=== PATIENT | male | born 1950 | race Caucasian/White ===

== ENCOUNTER → 2018-04-17 09:54 | Outpatient (CLI) | payer OTHER, SELFPAY ==
[2018-04-17 10:39] LABS: Add Manual Diff / Slide Review NO; Basophils Percent Auto 1.8 % (0-2); Eosinophils Percent Auto 4.9 % (2-4); Hematocrit 40.8 % (41-53); Hemoglobin 14.2 g/dL (13.5-17.5); Lymphocytes Percent Auto 19.4 % (25-40); Mean Corpuscular HGB Conc 34.7 % (30-36); Mean Corpuscular Hemoglobin 40.8 PG (26-34); Mean Corpuscular Volume 117.7 fL (80-100); Monocytes Percent Auto 15.1 % (3-14); Neutrophils Absolute Auto 2300 /uL (3000-5900); Neutrophils Percent Auto 58.8 % (50-75); Platelet Count 415 X10^3/uL (150-400); Red Blood Cell Count 3.47 X10^6/uL (4.5-5.9); Red Cell Distribution Width 13.2 % (11.6-14.8); White Blood Cell Count 3.9 X10^3/uL (4.5-11.0)
[2018-04-17 10:48] LABS: Alanine Aminotransferase 37 IU/L (21-72); Albumin 3.9 g/dL (3.5-5.0); Albumin Globulin Ratio 1.4 (1.0-2.8); Alkaline Phosphatase 88 U/L (38-126); Aspartate Aminotransferase 27 IU/L (17-59); BUN Creatinine Ratio 21.1 (6-22); Bilirubin Total 0.4 mg/dL (0.2-1.3); Blood Urea Nitrogen 19 mg/dL (9-20); Calcium 8.7 mg/dL (8.4-10.2); Carbon Dioxide 24 mmol/L (22-32); Chloride 105 mmol/L (98-107); Estimated Glomerular Filt Rate > 60.0 mL/min (>60); Globulin 2.7 g/dL (1.7-4.1); Glucose 94 mg/dL (80-110); HEMOLYSIS 22 (0-50); Potassium 4.4 mmol/L (3.4-5.1); Sodium 141 mmol/L (137-145); Total Protein 6.6 g/dL (6.3-8.2)
[2018-04-17 11:08] LABS: Macrocytosis 2+
== END ==
PROVIDERS: Family Provider Internal Medicine; PCP Internal Medicine; Visit Provider Nurse Practitioner Gerontology
DX: D47.3 Essential (hemorrhagic) thrombocythemia (principal)
CPT/HCPCS: 36415; 80053; 85025

== ENCOUNTER → 2018-04-24 13:10 | Outpatient (CLI) | payer OTHER, SELFPAY ==
[2018-04-24 09:39] LABS: Add Manual Diff / Slide Review NO; Basophils Percent Auto 2.3 % (0-2); Eosinophils Percent Auto 2.5 % (2-4); Hematocrit 40.4 % (41-53); Hemoglobin 13.9 g/dL (13.5-17.5); Lymphocytes Percent Auto 23.4 % (25-40); Mean Corpuscular HGB Conc 34.4 % (30-36); Mean Corpuscular Hemoglobin 40.2 PG (26-34); Mean Corpuscular Volume 116.7 fL (80-100); Monocytes Percent Auto 20.9 % (3-14); Neutrophils Absolute Auto 1800 /uL (3000-5900); Neutrophils Percent Auto 50.9 % (50-75); Platelet Count 582 X10^3/uL (150-400); Red Blood Cell Count 3.46 X10^6/uL (4.5-5.9); Red Cell Distribution Width 13.1 % (11.6-14.8); White Blood Cell Count 3.4 X10^3/uL (4.5-11.0)
[2018-04-24 12:46] LABS: Macrocytosis 2+
== END ==
PROVIDERS: Family Provider Specialist; PCP Internal Medicine; Visit Provider Nurse Practitioner Gerontology
DX: D47.3 Essential (hemorrhagic) thrombocythemia (principal)
CPT/HCPCS: 36415; 85025

== ENCOUNTER → 2018-05-01 09:33 | Outpatient (CLI) | payer OTHER, SELFPAY ==
[2018-05-01 09:58] LABS: Hematocrit 41.7 % (41-53); Hemoglobin 14.4 g/dL (13.5-17.5); Mean Corpuscular HGB Conc 34.6 % (30-36); Mean Corpuscular Hemoglobin 40.7 PG (26-34); Mean Corpuscular Volume 117.8 fL (80-100); Platelet Count 649 X10^3/uL (150-400); Red Blood Cell Count 3.54 X10^6/uL (4.5-5.9); Red Cell Distribution Width 13.1 % (11.6-14.8); White Blood Cell Count 4.2 X10^3/uL (4.5-11.0)
[2018-05-01 10:12] LABS: Neutrophils Absolute Manual 2436 /uL (3000-5900); RBC Morphology Normal Morphology; Total Cells Counted 100
[2018-05-01 10:13] LABS: Hypersegmented Neutrophils 3+
== END ==
PROVIDERS: Family Provider Internal Medicine; PCP Internal Medicine; Visit Provider Nurse Practitioner Gerontology
DX: D47.3 Essential (hemorrhagic) thrombocythemia (principal)
CPT/HCPCS: 36415; 85025

== ENCOUNTER → 2018-05-08 09:39 | Outpatient (CLI) | payer OTHER, SELFPAY ==
[2018-05-08 10:08] LABS: Add Manual Diff / Slide Review NO; Basophils Percent Auto 2.1 % (0-2); Eosinophils Percent Auto 3.3 % (2-4); Hemoglobin 14.8 g/dL (13.5-17.5); Mean Corpuscular HGB Conc 34.4 % (30-36); Mean Corpuscular Hemoglobin 40.3 PG (26-34); Mean Corpuscular Volume 117.1 fL (80-100); Monocytes Percent Auto 19.1 % (3-14); Neutrophils Absolute Auto 2500 /uL (3000-5900); Neutrophils Percent Auto 55.5 % (50-75); Platelet Count 545 X10^3/uL (150-400); Red Blood Cell Count 3.67 X10^6/uL (4.5-5.9); Red Cell Distribution Width 13.1 % (11.6-14.8); White Blood Cell Count 4.4 X10^3/uL (4.5-11.0)
[2018-05-08 10:26] LABS: Macrocytosis 2+
== END ==
PROVIDERS: Family Provider Internal Medicine; PCP Internal Medicine; Visit Provider Nurse Practitioner Gerontology
DX: D47.3 Essential (hemorrhagic) thrombocythemia (principal)
CPT/HCPCS: 36415; 85025

== ENCOUNTER → 2018-05-15 09:34 | Outpatient (CLI) | payer OTHER, SELFPAY ==
[2018-05-15 09:48] LABS: Add Manual Diff / Slide Review NO; Basophils Percent Auto 0.6 % (0-2); Eosinophils Percent Auto 3.4 % (2-4); Hematocrit 42.9 % (41-53); Hemoglobin 14.7 g/dL (13.5-17.5); Lymphocytes Percent Auto 16.5 % (25-40); Mean Corpuscular HGB Conc 34.2 % (30-36); Mean Corpuscular Hemoglobin 40.1 PG (26-34); Mean Corpuscular Volume 117.3 fL (80-100); Monocytes Percent Auto 15.4 % (3-14); Neutrophils Absolute Auto 3400 /uL (3000-5900); Neutrophils Percent Auto 64.1 % (50-75); Platelet Count 332 X10^3/uL (150-400); Red Blood Cell Count 3.66 X10^6/uL (4.5-5.9); Red Cell Distribution Width 13.3 % (11.6-14.8); White Blood Cell Count 5.2 X10^3/uL (4.5-11.0)
[2018-05-15 10:01] LABS: Macrocytosis 3+
== END ==
PROVIDERS: Family Provider Internal Medicine; PCP Internal Medicine; Visit Provider Nurse Practitioner Gerontology
DX: D47.3 Essential (hemorrhagic) thrombocythemia (principal)
CPT/HCPCS: 36415; 85025

== ENCOUNTER → 2018-05-22 10:04 | Outpatient (CLI) | payer OTHER, SELFPAY ==
[2018-05-22 10:30] LABS: Basophils Percent Auto 2.1 % (0-2); Eosinophils Percent Auto 4.1 % (2-4); Hematocrit 41.2 % (41-53); Lymphocytes Percent Auto 17.7 % (25-40); Mean Corpuscular HGB Conc 34.1 % (30-36); Mean Corpuscular Hemoglobin 39.9 PG (26-34); Monocytes Percent Auto 14.5 % (3-14); Neutrophils Absolute Auto 2900 /uL (3000-5900); Neutrophils Percent Auto 61.6 % (50-75); Platelet Count 225 X10^3/uL (150-400); Red Blood Cell Count 3.52 X10^6/uL (4.5-5.9); Red Cell Distribution Width 13.3 % (11.6-14.8); White Blood Cell Count 4.7 X10^3/uL (4.5-11.0)
[2018-05-22 10:31] LABS: Add Manual Diff / Slide Review SLIDE REVIEW
[2018-05-22 11:02] LABS: Macrocytosis 3+
== END ==
PROVIDERS: Family Provider Internal Medicine; PCP Internal Medicine; Visit Provider Nurse Practitioner Gerontology
DX: D47.3 Essential (hemorrhagic) thrombocythemia (principal)
CPT/HCPCS: 36415; 85025

== ENCOUNTER → 2018-05-29 12:46 | Outpatient (CLI) | payer OTHER, SELFPAY ==
[2018-05-29 13:13] LABS: Add Manual Diff / Slide Review NO; Basophils Percent Auto 1.6 % (0-2); Eosinophils Percent Auto 4.2 % (2-4); Hematocrit 40.6 % (41-53); Mean Corpuscular HGB Conc 34.5 % (30-36); Mean Corpuscular Hemoglobin 40.6 PG (26-34); Mean Corpuscular Volume 117.5 fL (80-100); Monocytes Percent Auto 11.2 % (3-14); Neutrophils Absolute Auto 2600 /uL (3000-5900); Platelet Count 186 X10^3/uL (150-400); Red Blood Cell Count 3.46 X10^6/uL (4.5-5.9); Red Cell Distribution Width 13.2 % (11.6-14.8); White Blood Cell Count 4.1 X10^3/uL (4.5-11.0)
[2018-05-29 13:35] LABS: Macrocytosis 3+
--- NOTE | 2018-05-29 16:47 | PC.NURSE ---
Per Shannan Kwok's Request, pt was notified of PLT count of 186 which stable. It was recommended by Shannan that the pt decrease his Hydrea dose to 9500mg/week and continue with weekly CBC's. Per pt, he was schedule for a CBC next week
== END ==
PROVIDERS: Family Provider Internal Medicine; PCP Internal Medicine; Visit Provider Nurse Practitioner Gerontology
DX: D47.3 Essential (hemorrhagic) thrombocythemia (principal)
CPT/HCPCS: 36415; 85025

== ENCOUNTER → 2018-06-05 09:47 | Outpatient (CLI) | payer OTHER, SELFPAY ==
[2018-06-05 10:11] LABS: Basophils Percent Auto 1.1 % (0-2); Eosinophils Percent Auto 3.9 % (2-4); Hematocrit 40.5 % (41-53); Hemoglobin 14.2 g/dL (13.5-17.5); Lymphocytes Percent Auto 18.7 % (25-40); Mean Corpuscular HGB Conc 34.9 % (30-36); Mean Corpuscular Hemoglobin 40.8 PG (26-34); Mean Corpuscular Volume 116.9 fL (80-100); Monocytes Percent Auto 15.2 % (3-14); Neutrophils Absolute Auto 2800 /uL (3000-5900); Neutrophils Percent Auto 61.1 % (50-75); Platelet Count 233 X10^3/uL (150-400); Red Blood Cell Count 3.47 X10^6/uL (4.5-5.9); Red Cell Distribution Width 13.5 % (11.6-14.8); White Blood Cell Count 4.6 X10^3/uL (4.5-11.0)
[2018-06-05 10:14] LABS: Add Manual Diff / Slide Review SLIDE REVIEW
[2018-06-05 10:36] LABS: Macrocytosis 3+
== END ==
PROVIDERS: Family Provider Internal Medicine; PCP Internal Medicine; Visit Provider Nurse Practitioner Gerontology
DX: D47.3 Essential (hemorrhagic) thrombocythemia (principal)
CPT/HCPCS: 36415; 85025

== ENCOUNTER → 2018-06-13 10:20 | Outpatient (CLI) | payer OTHER, SELFPAY ==
--- NOTE | 2018-06-13 10:22 | DI.US.S_ITS ---
PROCEDURE: US ABDOMEN LIMITED INDICATIONS: THROMBOCYTHEMIA TECHNIQUE: Real-time focused scanning was performed of the abdomen, with image documentation. COMPARISON: [facility], , ABDOMEN LIMITED, 04/03/2017, 9:08. FINDINGS: Spleen length is 12.5 cm and splenic volume is 194 cc, within normal limits. Splenic volume on prior exam was 156 cc. IMPRESSION: Normal sized spleen. Dictated by: Jaime Brandon M.D. on 06/13/2018 at 11:34 Approved by: Jaime Brandon M.D. on 06/13/2018 at 11:35
[2018-06-13 11:18] LABS: Add Manual Diff / Slide Review NO; Basophils Percent Auto 1.9 % (0-2); Eosinophils Percent Auto 3.2 % (2-4); Hematocrit 41.1 % (41-53); Hemoglobin 14.1 g/dL (13.5-17.5); Lymphocytes Percent Auto 24.3 % (25-40); Mean Corpuscular HGB Conc 34.4 % (30-36); Mean Corpuscular Hemoglobin 40.3 PG (26-34); Mean Corpuscular Volume 117.2 fL (80-100); Neutrophils Absolute Auto 1900 /uL (3000-5900); Neutrophils Percent Auto 53.6 % (50-75); Platelet Count 389 X10^3/uL (150-400); Red Blood Cell Count 3.51 X10^6/uL (4.5-5.9); Red Cell Distribution Width 13.8 % (11.6-14.8); White Blood Cell Count 3.5 X10^3/uL (4.5-11.0)
[2018-06-13 11:30] LABS: Alanine Aminotransferase 31 IU/L (21-72); Albumin 4.5 g/dL (3.5-5.0); Albumin Globulin Ratio 1.8 (1.0-2.8); Alkaline Phosphatase 58 U/L (38-126); Aspartate Aminotransferase 21 IU/L (17-59); BUN Creatinine Ratio 22.2 (6-22); Bilirubin Total 0.4 mg/dL (0.2-1.3); Blood Urea Nitrogen 20 mg/dL (9-20); Calcium 9.4 mg/dL (8.4-10.2); Carbon Dioxide 26 mmol/L (22-32); Chloride 105 mmol/L (98-107); Estimated Glomerular Filt Rate > 60.0 mL/min (>60); Globulin 2.5 g/dL (1.7-4.1); Glucose 106 mg/dL (80-110); HEMOLYSIS < 15 (0-50); Potassium 4.5 mmol/L (3.4-5.1); Sodium 140 mmol/L (137-145)
[2018-06-13 11:42] LABS: Anisocytosis 2+
== END ==
PROVIDERS: Family Provider Internal Medicine; PCP Internal Medicine; Visit Provider Nurse Practitioner Gerontology
DX: D47.3 Essential (hemorrhagic) thrombocythemia (principal)
CPT/HCPCS: 36415; 76705; 80053; 85025

== ENCOUNTER → 2018-06-19 10:08 | Outpatient (CLI) | payer OTHER, SELFPAY ==
[2018-06-19 10:52] LABS: Add Manual Diff / Slide Review NO; Basophils Percent Auto 2.1 % (0-2); Eosinophils Percent Auto 3.6 % (2-4); Hematocrit 38.9 % (41-53); Hemoglobin 13.5 g/dL (13.5-17.5); Lymphocytes Percent Auto 21.6 % (25-40); Mean Corpuscular HGB Conc 34.7 % (30-36); Mean Corpuscular Hemoglobin 40.6 PG (26-34); Mean Corpuscular Volume 117.2 fL (80-100); Monocytes Percent Auto 18.4 % (3-14); Neutrophils Absolute Auto 1600 /uL (3000-5900); Neutrophils Percent Auto 54.3 % (50-75); Platelet Count 494 X10^3/uL (150-400); Red Blood Cell Count 3.32 X10^6/uL (4.5-5.9); Red Cell Distribution Width 14.1 % (11.6-14.8)
[2018-06-19 11:42] LABS: Anisocytosis 1+; Macrocytosis 3+
== END ==
PROVIDERS: Family Provider Internal Medicine; PCP Internal Medicine; Visit Provider Nurse Practitioner Gerontology
DX: D47.3 Essential (hemorrhagic) thrombocythemia (principal)
CPT/HCPCS: 36415; 85025

== ENCOUNTER → 2018-06-26 10:10 | Outpatient (CLI) | payer OTHER, SELFPAY ==
[2018-06-26 10:30] LABS: Add Manual Diff / Slide Review NO; Basophils Percent Auto 2.1 % (0-2); Eosinophils Percent Auto 2.1 % (2-4); Hematocrit 41.5 % (41-53); Hemoglobin 14.4 g/dL (13.5-17.5); Mean Corpuscular HGB Conc 34.6 % (30-36); Mean Corpuscular Hemoglobin 40.6 PG (26-34); Monocytes Percent Auto 20.2 % (3-14); Neutrophils Absolute Auto 1800 /uL (3000-5900); Neutrophils Percent Auto 52.6 % (50-75); Platelet Count 481 X10^3/uL (150-400); Red Blood Cell Count 3.54 X10^6/uL (4.5-5.9); Red Cell Distribution Width 14.1 % (11.6-14.8); White Blood Cell Count 3.5 X10^3/uL (4.5-11.0)
[2018-06-26 11:04] LABS: Anisocytosis 2+; Macrocytosis 3+
== END ==
PROVIDERS: Family Provider Internal Medicine; PCP Internal Medicine; Visit Provider Nurse Practitioner Gerontology
DX: D47.3 Essential (hemorrhagic) thrombocythemia (principal)
CPT/HCPCS: 36415; 85025

== ENCOUNTER → 2018-07-03 15:06 | Outpatient (CLI) | payer OTHER, SELFPAY ==
[2018-07-03 10:36] LABS: Add Manual Diff / Slide Review NO; Basophils Percent Auto 2.1 % (0-2); Eosinophils Percent Auto 2.1 % (2-4); Hematocrit 41.3 % (41-53); Hemoglobin 14.6 g/dL (13.5-17.5); Lymphocytes Percent Auto 19.5 % (25-40); Mean Corpuscular HGB Conc 35.5 % (30-36); Mean Corpuscular Hemoglobin 41.6 PG (26-34); Mean Corpuscular Volume 117.3 fL (80-100); Monocytes Percent Auto 16.9 % (3-14); Neutrophils Absolute Auto 2400 /uL (3000-5900); Neutrophils Percent Auto 59.4 % (50-75); Platelet Count 332 X10^3/uL (150-400); Red Blood Cell Count 3.52 X10^6/uL (4.5-5.9); Red Cell Distribution Width 14.1 % (11.6-14.8); White Blood Cell Count 4.1 X10^3/uL (4.5-11.0)
[2018-07-03 10:52] LABS: Macrocytosis 2+
--- NOTE | 2018-07-09 15:16 | PC.NURSE ---
Pt was in for CBC 0n 07/03. Plt count was noted to be 332 down from week early of 481. Currently on 10,500 mg weekly of hydrea. Per SENIOR INFRASTRUCTURE ARCHITECT, pt is to continue 10,500mg qweek as ordered.
== END ==
PROVIDERS: Family Provider Internal Medicine; PCP Internal Medicine; Visit Provider Nurse Practitioner Gerontology
DX: D47.3 Essential (hemorrhagic) thrombocythemia (principal)
CPT/HCPCS: 36415; 85025

== ENCOUNTER → 2018-07-10 10:00 | Outpatient (CLI) | payer OTHER, SELFPAY ==
[2018-07-10 10:16] LABS: Add Manual Diff / Slide Review NO; Basophils Percent Auto 2.5 % (0-2); Eosinophils Percent Auto 3.7 % (2-4); Hematocrit 40.2 % (41-53); Hemoglobin 14.1 g/dL (13.5-17.5); Lymphocytes Percent Auto 21.2 % (25-40); Mean Corpuscular Hemoglobin 40.6 PG (26-34); Mean Corpuscular Volume 116.2 fL (80-100); Monocytes Percent Auto 15.7 % (3-14); Neutrophils Absolute Auto 2600 /uL (3000-5900); Neutrophils Percent Auto 56.9 % (50-75); Platelet Count 244 X10^3/uL (150-400); Red Blood Cell Count 3.46 X10^6/uL (4.5-5.9); Red Cell Distribution Width 14.5 % (11.6-14.8); White Blood Cell Count 4.5 X10^3/uL (4.5-11.0)
[2018-07-10 10:38] LABS: Macrocytosis 3+
--- NOTE | 2018-07-10 12:19 | PC.NURSE ---
weekly CBC is currently stable when compared with previous lab.
== END ==
PROVIDERS: Family Provider Internal Medicine; PCP Internal Medicine; Visit Provider Nurse Practitioner Gerontology
DX: D47.3 Essential (hemorrhagic) thrombocythemia (principal)
CPT/HCPCS: 36415; 85025

== ENCOUNTER → 2018-07-17 09:56 | Outpatient (CLI) | payer OTHER, SELFPAY ==
[2018-07-17 10:36] LABS: Add Manual Diff / Slide Review NO; Basophils Percent Auto 1.9 % (0-2); Eosinophils Percent Auto 5.8 % (2-4); Hematocrit 40.3 % (41-53); Hemoglobin 14.2 g/dL (13.5-17.5); Lymphocytes Percent Auto 23.1 % (25-40); Mean Corpuscular HGB Conc 35.2 % (30-36); Mean Corpuscular Hemoglobin 40.7 PG (26-34); Mean Corpuscular Volume 115.9 fL (80-100); Monocytes Percent Auto 12.1 % (3-14); Neutrophils Absolute Auto 2300 /uL (3000-5900); Neutrophils Percent Auto 57.1 % (50-75); Platelet Count 129 X10^3/uL (150-400); Red Blood Cell Count 3.48 X10^6/uL (4.5-5.9); Red Cell Distribution Width 14.4 % (11.6-14.8); White Blood Cell Count 4.1 X10^3/uL (4.5-11.0)
[2018-07-17 11:45] LABS: Anisocytosis 1+; Macrocytosis 3+
== END ==
PROVIDERS: Family Provider Internal Medicine; PCP Internal Medicine; Visit Provider Nurse Practitioner Gerontology
DX: D47.3 Essential (hemorrhagic) thrombocythemia (principal)
CPT/HCPCS: 36415; 85025

== ENCOUNTER → 2018-07-24 09:41 | Outpatient (CLI) | payer OTHER, SELFPAY ==
[2018-07-24 10:08] LABS: Add Manual Diff / Slide Review NO; Basophils Percent Auto 1.3 % (0-2); Eosinophils Percent Auto 4.6 % (2-4); Hematocrit 40.1 % (41-53); Hemoglobin 13.8 g/dL (13.5-17.5); Lymphocytes Percent Auto 20.6 % (25-40); Mean Corpuscular HGB Conc 34.5 % (30-36); Mean Corpuscular Hemoglobin 40.7 PG (26-34); Monocytes Percent Auto 14.9 % (3-14); Neutrophils Absolute Auto 2300 /uL (3000-5900); Neutrophils Percent Auto 58.6 % (50-75); Platelet Count 116 X10^3/uL (150-400); Red Cell Distribution Width 14.3 % (11.6-14.8); White Blood Cell Count 3.9 X10^3/uL (4.5-11.0)
[2018-07-24 10:41] LABS: Macrocytosis 2+
--- NOTE | 2018-07-24 11:01 | PC.NURSE ---
Pt notified of lab results on 07/17 and 07/24. Plts were 129 and then dropped to 116. Per SYSTEMS SOFTWARE MANAGER, pt is to reduce his dose of hydrea from 10,000 to 9500. Pt agrees.
== END ==
PROVIDERS: Family Provider Internal Medicine; PCP Internal Medicine; Visit Provider Nurse Practitioner Gerontology
DX: D47.3 Essential (hemorrhagic) thrombocythemia (principal)
CPT/HCPCS: 36415; 85025

== ENCOUNTER → 2018-07-31 09:58 | Outpatient (CLI) | payer OTHER, SELFPAY ==
[2018-07-31 10:11] LABS: Add Manual Diff / Slide Review NO; Basophils Percent Auto 1.4 % (0-2); Eosinophils Percent Auto 5.9 % (2-4); Lymphocytes Percent Auto 20.7 % (25-40); Mean Corpuscular Hemoglobin 40.9 PG (26-34); Mean Corpuscular Volume 116.6 fL (80-100); Neutrophils Absolute Auto 2000 /uL (3000-5900); Platelet Count 207 X10^3/uL (150-400); Red Blood Cell Count 3.43 X10^6/uL (4.5-5.9); Red Cell Distribution Width 14.8 % (11.6-14.8); White Blood Cell Count 3.6 X10^3/uL (4.5-11.0)
[2018-07-31 10:37] LABS: Anisocytosis 1+
[2018-07-31 10:39] LABS: Macrocytosis 2+
== END ==
PROVIDERS: Family Provider Internal Medicine; PCP Internal Medicine; Visit Provider Nurse Practitioner Gerontology
DX: D47.3 Essential (hemorrhagic) thrombocythemia (principal)
CPT/HCPCS: 36415; 85025

== ENCOUNTER → 2018-09-25 10:01 | Outpatient (CLI) | payer OTHER, SELFPAY ==
[2018-09-25 10:37] LABS: Add Manual Diff / Slide Review NO; Basophils Percent Auto 2.5 % (0-2); Eosinophils Percent Auto 4.4 % (2-4); Hematocrit 39.2 % (41-53); Hemoglobin 13.7 g/dL (13.5-17.5); Lymphocytes Percent Auto 22.4 % (25-40); Mean Corpuscular Hemoglobin 42.6 PG (26-34); Mean Corpuscular Volume 121.6 fL (80-100); Monocytes Percent Auto 17.9 % (3-14); Neutrophils Absolute Auto 1500 /uL (3000-5900); Neutrophils Percent Auto 52.8 % (50-75); Platelet Count 197 X10^3/uL (150-400); Red Blood Cell Count 3.23 X10^6/uL (4.5-5.9); Red Cell Distribution Width 15.6 % (11.6-14.8); White Blood Cell Count 2.9 X10^3/uL (4.5-11.0)
[2018-09-25 10:37] LABS: Alanine Aminotransferase 35 IU/L (21-72); Albumin 4.4 g/dL (3.5-5.0); Albumin Globulin Ratio 1.9 (1.0-2.8); Alkaline Phosphatase 57 U/L (38-126); Aspartate Aminotransferase 24 IU/L (17-59); BUN Creatinine Ratio 18.9 (6-22); Bilirubin Total 0.5 mg/dL (0.2-1.3); Blood Urea Nitrogen 17 mg/dL (9-20); Calcium 9.1 mg/dL (8.4-10.2); Carbon Dioxide 22 mmol/L (22-32); Chloride 108 mmol/L (98-107); Estimated Glomerular Filt Rate > 60.0 mL/min (>60); Globulin 2.3 g/dL (1.7-4.1); Glucose 103 mg/dL (80-110); HEMOLYSIS < 15 (0-50); Potassium 4.3 mmol/L (3.4-5.1); Sodium 143 mmol/L (137-145); Total Protein 6.7 g/dL (6.3-8.2)
[2018-09-25 11:00] LABS: Macrocytosis 2+; Polychromasia 1+
== END ==
PROVIDERS: Family Provider Internal Medicine; PCP Internal Medicine; Visit Provider Internal Medicine Hematology & Oncology
DX: D47.3 Essential (hemorrhagic) thrombocythemia (principal)
CPT/HCPCS: 36415; 80053; 85025

== ENCOUNTER → 2018-10-09 09:57 | Outpatient (CLI) | payer OTHER, SELFPAY ==
[2018-10-09 10:40] LABS: Add Manual Diff / Slide Review NO; Basophils Percent Auto 1.7 % (0-2); Eosinophils Percent Auto 3.1 % (2-4); Hematocrit 39.7 % (41-53); Hemoglobin 13.7 g/dL (13.5-17.5); Lymphocytes Percent Auto 22.9 % (25-40); Mean Corpuscular HGB Conc 34.4 % (30-36); Mean Corpuscular Hemoglobin 42.6 PG (26-34); Mean Corpuscular Volume 123.7 fL (80-100); Monocytes Percent Auto 17.1 % (3-14); Neutrophils Absolute Auto 1800 /uL (3000-5900); Neutrophils Percent Auto 55.2 % (50-75); Platelet Count 516 X10^3/uL (150-400); Red Blood Cell Count 3.21 X10^6/uL (4.5-5.9); Red Cell Distribution Width 15.5 % (11.6-14.8); White Blood Cell Count 3.3 X10^3/uL (4.5-11.0)
[2018-10-09 11:42] LABS: Microcytosis 2+
--- NOTE | 2018-10-09 16:09 | PC.NURSE ---
This insurance underwriter sales placed call to pt and informed him of platelet count of 516, pt verbalized understanding. Pt reports current Hydrea dose of 9,500mg Q week. Pt reports will keep dose the same and will see Shannan at next scheduled appointment. gear generator set up operator aware.
== END ==
PROVIDERS: Family Provider Internal Medicine; PCP Internal Medicine; Visit Provider Nurse Practitioner Gerontology
DX: D47.3 Essential (hemorrhagic) thrombocythemia (principal)
CPT/HCPCS: 85025

== ENCOUNTER → 2018-10-23 09:38 | Outpatient (CLI) | payer OTHER, SELFPAY ==
[2018-10-23 10:01] LABS: Add Manual Diff / Slide Review NO; Basophils Percent Auto 2.8 % (0-2); Eosinophils Percent Auto 2.2 % (2-4); Hematocrit 40.9 % (41-53); Hemoglobin 14.1 g/dL (13.5-17.5); Lymphocytes Percent Auto 20.3 % (25-40); Mean Corpuscular HGB Conc 34.4 % (30-36); Mean Corpuscular Hemoglobin 42.8 PG (26-34); Mean Corpuscular Volume 124.6 fL (80-100); Monocytes Percent Auto 21.6 % (3-14); Neutrophils Absolute Auto 2100 /uL (3000-5900); Neutrophils Percent Auto 53.1 % (50-75); Platelet Count 392 X10^3/uL (150-400); Red Blood Cell Count 3.28 X10^6/uL (4.5-5.9); Red Cell Distribution Width 15.1 % (11.6-14.8)
== END ==
PROVIDERS: Family Provider Internal Medicine; PCP Internal Medicine; Visit Provider Nurse Practitioner Gerontology
DX: D47.3 Essential (hemorrhagic) thrombocythemia (principal)
CPT/HCPCS: 36415; 85025

== ENCOUNTER → 2018-12-04 09:56 | Outpatient (CLI) | payer OTHER, SELFPAY ==
[2018-12-04 10:50] LABS: Add Manual Diff / Slide Review NO; Basophils Absolute Auto 0 /uL (0-100); Eosinophils Absolute Auto 100 /uL (0-450); Eosinophils Percent Auto 3.2 % (2-4); Hemoglobin 13.6 g/dL (13.5-17.5); Lymphocytes Absolute Auto 500 /uL (1100-4500); Mean Corpuscular HGB Conc 34.1 % (30-36); Mean Corpuscular Hemoglobin 43.5 PG (26-34); Mean Corpuscular Volume 127.5 fL (80-100); Monocytes Absolute Auto 400 /uL (0-900); Monocytes Percent Auto 15.9 % (3-14); Neutrophils Absolute Auto 1400 /uL (1500-7000); Neutrophils Percent Auto 57.9 % (50-75); Platelet Count 247 X10^3/uL (150-400); Red Blood Cell Count 3.14 X10^6/uL (4.5-5.9); Red Cell Distribution Width 13.6 % (11.6-14.8); White Blood Cell Count 2.4 X10^3/uL (4.5-11.0)
[2018-12-04 11:14] LABS: Anisocytosis 2+; Macrocytosis 2+
== END ==
PROVIDERS: Family Provider Internal Medicine; PCP Internal Medicine
DX: D47.3 Essential (hemorrhagic) thrombocythemia
CPT/HCPCS: 85025

== ENCOUNTER → 2019-01-01 09:40 | Outpatient (CLI) | payer OTHER, SELFPAY ==
[2019-01-01 10:26] LABS: Add Manual Diff / Slide Review YES; Hematocrit 39.6 % (41-53); Hemoglobin 13.2 g/dL (13.5-17.5); Mean Corpuscular HGB Conc 33.4 % (30-36); Mean Corpuscular Hemoglobin 44.7 PG (26-34); Mean Corpuscular Volume 133.8 fL (80-100); Platelet Count 131 X10^3/uL (150-400); Red Blood Cell Count 2.96 X10^6/uL (4.5-5.9); Red Cell Distribution Width 16.3 % (11.6-14.8); White Blood Cell Count 3.1 X10^3/uL (4.5-11.0)
[2019-01-01 10:33] LABS: Hypersegmented Neutrophils 1+; Macrocytosis 3+; Neutrophils Absolute Manual 1767 /uL (3000-5900); Polychromasia 2+; Total Cells Counted 100
== END ==
PROVIDERS: Family Provider Internal Medicine; PCP Internal Medicine
DX: D47.3 Essential (hemorrhagic) thrombocythemia (principal)
CPT/HCPCS: 84153; 85025

== ENCOUNTER → 2019-03-28 10:59 | Outpatient (CLI) | payer OTHER, SELFPAY ==
[2019-03-28 12:23] LABS: Add Manual Diff / Slide Review NO; Basophils Absolute Auto 100 /uL (0-100); Basophils Percent Auto 2.1 % (0-2); Eosinophils Absolute Auto 200 /uL (0-450); Eosinophils Percent Auto 3.7 % (2-4); Hematocrit 40.9 % (41-53); Lymphocytes Absolute Auto 800 /uL (1100-4500); Lymphocytes Percent Auto 19.7 % (25-40); Mean Corpuscular HGB Conc 34.1 % (30-36); Mean Corpuscular Volume 128.9 fL (80-100); Monocytes Absolute Auto 700 /uL (0-900); Monocytes Percent Auto 18.1 % (3-14); Neutrophils Absolute Auto 2300 /uL (1500-7000); Neutrophils Percent Auto 56.4 % (50-75); Platelet Count 299 X10^3/uL (150-400); Red Blood Cell Count 3.18 X10^6/uL (4.5-5.9); Red Cell Distribution Width 12.4 % (11.6-14.8); White Blood Cell Count 4.1 X10^3/uL (4.5-11.0)
[2019-03-28 12:42] LABS: Macrocytosis 3+
[2019-03-28 13:11] LABS: Prostate Specific Antigen 6.87 ng/mL (0.10-4.00)
== END ==
PROVIDERS: PCP Internal Medicine
DX: N41.9 Inflammatory disease of prostate, unspecified (principal); R97.20 Elevated prostate specific antigen [PSA]; D47.3 Essential (hemorrhagic) thrombocythemia
CPT/HCPCS: 36415; 84153; 85025

== ENCOUNTER → 2019-04-30 09:50 | Outpatient (CLI) | payer OTHER, SELFPAY ==
[2019-04-30 10:10] LABS: Add Manual Diff / Slide Review NO; Basophils Absolute Auto 100 /uL (0-100); Basophils Percent Auto 2.2 % (0-2); Eosinophils Absolute Auto 100 /uL (0-450); Eosinophils Percent Auto 2.8 % (2-4); Hematocrit 41.3 % (41-53); Hemoglobin 14.4 g/dL (13.5-17.5); Lymphocytes Absolute Auto 1000 /uL (1100-4500); Lymphocytes Percent Auto 20.9 % (25-40); Mean Corpuscular HGB Conc 34.9 % (30-36); Mean Corpuscular Hemoglobin 42.4 PG (26-34); Mean Corpuscular Volume 121.4 fL (80-100); Monocytes Absolute Auto 800 /uL (0-900); Monocytes Percent Auto 16.2 % (3-14); Neutrophils Absolute Auto 2800 /uL (1500-7000); Neutrophils Percent Auto 57.9 % (50-75); Platelet Count 483 X10^3/uL (150-400); Red Cell Distribution Width 11.7 % (11.6-14.8); White Blood Cell Count 4.9 X10^3/uL (4.5-11.0)
[2019-04-30 10:47] LABS: Macrocytosis 3+
[2019-05-04 08:26] LABS: PSA Free % 12 % (calc) (> 25); PSA, Total 9.2 ng/mL (< 4.1)
== END ==
PROVIDERS: PCP Internal Medicine
DX: R97.20 Elevated prostate specific antigen [PSA] (principal); D47.3 Essential (hemorrhagic) thrombocythemia
CPT/HCPCS: 36415; 84153; 84154; 85025

== ENCOUNTER → 2019-07-02 09:44 | Outpatient (CLI) | payer OTHER, SELFPAY ==
[2019-07-02 11:06] LABS: Add Manual Diff / Slide Review NO; Basophils Absolute Auto 200 /uL (0-100); Basophils Percent Auto 3.3 % (0-2); Eosinophils Absolute Auto 400 /uL (0-450); Eosinophils Percent Auto 6.5 % (2-4); Hematocrit 40.7 % (41-53); Hemoglobin 13.9 g/dL (13.5-17.5); Lymphocytes Absolute Auto 1000 /uL (1100-4500); Lymphocytes Percent Auto 17.2 % (25-40); Mean Corpuscular HGB Conc 34.2 % (30-36); Mean Corpuscular Hemoglobin 40.3 PG (26-34); Monocytes Absolute Auto 1100 /uL (0-900); Monocytes Percent Auto 18.4 % (3-14); Neutrophils Absolute Auto 3300 /uL (1500-7000); Neutrophils Percent Auto 54.6 % (50-75); Platelet Count 527 X10^3/uL (150-400); Red Blood Cell Count 3.45 X10^6/uL (4.5-5.9); Red Cell Distribution Width 12.4 % (11.6-14.8)
[2019-07-02 11:26] LABS: Macrocytosis 1+
[2019-07-04 14:49] LABS: PSA Free % 14 % (calc) (> 25); PSA, Total 7.2 ng/mL (< 4.1)
== END ==
PROVIDERS: Family Provider Specialist; PCP Internal Medicine
DX: R97.20 Elevated prostate specific antigen [PSA] (principal); D47.3 Essential (hemorrhagic) thrombocythemia
CPT/HCPCS: 36415; 84153; 84154; 85025

== ENCOUNTER → 2019-09-04 12:12 | Outpatient (CLI) | payer OTHER, SELFPAY ==
[2019-09-04 12:59] LABS: Add Manual Diff / Slide Review NO; Basophils Absolute Auto 100 /uL (0-100); Basophils Percent Auto 2.2 % (0-2); Eosinophils Absolute Auto 300 /uL (0-450); Eosinophils Percent Auto 4.3 % (2-4); Hematocrit 42.2 % (41-53); Hemoglobin 14.4 g/dL (13.5-17.5); Lymphocytes Absolute Auto 1100 /uL (1100-4500); Lymphocytes Percent Auto 18.6 % (25-40); Mean Corpuscular HGB Conc 34.1 % (30-36); Mean Corpuscular Volume 117.4 fL (80-100); Monocytes Absolute Auto 1000 /uL (0-900); Monocytes Percent Auto 16.9 % (3-14); Neutrophils Absolute Auto 3600 /uL (1500-7000); Platelet Count 585 X10^3/uL (150-400); Red Cell Distribution Width 13.5 % (11.6-14.8); White Blood Cell Count 6.1 X10^3/uL (4.5-11.0)
[2019-09-04 13:16] LABS: Anisocytosis 2+; Macrocytosis 2+
[2019-09-10 11:39] LABS: PSA Free % 12 % (calc) (> 25); PSA, Total 6.5 ng/mL (< 4.1)
== END ==
PROVIDERS: Family Provider Specialist; PCP Internal Medicine
DX: D47.3 Essential (hemorrhagic) thrombocythemia (principal); N40.1 Benign prostatic hyperplasia with lower urinary tract symptoms
CPT/HCPCS: 36415; 84153; 84154; 85025

== ENCOUNTER → 2020-01-07 10:08 | Outpatient (CLI) | payer MEDICARE, OTHER, SELFPAY ==
[2020-01-07 10:50] LABS: Hematocrit 42.1 % (41-53); Hemoglobin 14.7 g/dL (13.5-17.5); Mean Corpuscular HGB Conc 34.9 % (30-36); Mean Corpuscular Hemoglobin 40.8 PG (26-34); Mean Corpuscular Volume 116.8 fL (80-100); Platelet Count 567 X10^3/uL (150-400); Red Blood Cell Count 3.61 X10^6/uL (4.5-5.9); White Blood Cell Count 5.1 X10^3/uL (4.5-11.0)
[2020-01-07 10:51] LABS: Add Manual Diff / Slide Review YES
[2020-01-07 11:17] LABS: Macrocytosis 3+; Neutrophils Absolute Manual 2805 /uL (3000-5900); Total Cells Counted 100
== END ==
PROVIDERS: Family Provider Specialist; PCP Internal Medicine; Referring Provider Internal Medicine Hematology & Oncology; Visit Provider Internal Medicine Hematology & Oncology
DX: D47.3 Essential (hemorrhagic) thrombocythemia (principal)
CPT/HCPCS: 36415; 85025

== ENCOUNTER → 2020-03-10 13:28 | Outpatient (CLI) | payer MEDICARE, OTHER, SELFPAY ==
[2020-03-10 13:52] LABS: Add Manual Diff / Slide Review NO; Basophils Absolute Auto 100 /uL (0-100); Basophils Percent Auto 2.6 % (0-2); Eosinophils Absolute Auto 200 /uL (0-450); Eosinophils Percent Auto 4.3 % (2-4); Hematocrit 42.4 % (41-53); Hemoglobin 14.7 g/dL (13.5-17.5); Lymphocytes Absolute Auto 1000 /uL (1100-4500); Lymphocytes Percent Auto 18.9 % (25-40); Mean Corpuscular HGB Conc 34.7 % (30-36); Mean Corpuscular Hemoglobin 41.1 PG (26-34); Mean Corpuscular Volume 118.4 fL (80-100); Monocytes Absolute Auto 1000 /uL (0-900); Monocytes Percent Auto 18.9 % (3-14); Neutrophils Absolute Auto 2900 /uL (1500-7000); Neutrophils Percent Auto 55.3 % (50-75); Platelet Count 526 X10^3/uL (150-400); Red Blood Cell Count 3.58 X10^6/uL (4.5-5.9); Red Cell Distribution Width 13.6 % (11.6-14.8); White Blood Cell Count 5.2 X10^3/uL (4.5-11.0)
[2020-03-10 14:08] LABS: Macrocytosis 2+; Platelet Estimate Increased on smear
== END ==
PROVIDERS: Family Provider Specialist; PCP Internal Medicine; Referring Provider Internal Medicine Hematology & Oncology
DX: D47.3 Essential (hemorrhagic) thrombocythemia (principal)
CPT/HCPCS: 36415; 85025

== ENCOUNTER → 2020-07-07 11:43 | Outpatient (CLI) | payer MEDICARE, OTHER, SELFPAY ==
[2020-07-07 12:16] LABS: Add Manual Diff / Slide Review NO; Basophils Absolute Auto 100 /uL (0-100); Basophils Percent Auto 2.4 % (0-2); Eosinophils Absolute Auto 300 /uL (0-450); Eosinophils Percent Auto 4.6 % (2-4); Hematocrit 40.8 % (41-53); Lymphocytes Absolute Auto 800 /uL (1100-4500); Lymphocytes Percent Auto 13.6 % (25-40); Mean Corpuscular HGB Conc 34.4 % (30-36); Mean Corpuscular Hemoglobin 40.2 PG (26-34); Monocytes Absolute Auto 1000 /uL (0-900); Monocytes Percent Auto 17.3 % (3-14); Neutrophils Absolute Auto 3800 /uL (1500-7000); Neutrophils Percent Auto 62.1 % (50-75); Platelet Count 469 X10^3/uL (150-400); Red Blood Cell Count 3.49 X10^6/uL (4.5-5.9); Red Cell Distribution Width 13.3 % (11.6-14.8); White Blood Cell Count 6.1 X10^3/uL (4.5-11.0)
[2020-07-07 12:29] LABS: Alanine Aminotransferase 36 IU/L (<50); Albumin 4.4 g/dL (3.5-5.0); Albumin Globulin Ratio 1.7 (1.0-2.8); Alkaline Phosphatase 61 U/L (38-126); Aspartate Aminotransferase 38 IU/L (17-59); BUN Creatinine Ratio 15.5 (6-22); Bilirubin Total 0.6 mg/dL (0.2-1.3); Blood Urea Nitrogen 15 mg/dL (9-20); Calcium 9.1 mg/dL (8.4-10.2); Carbon Dioxide 25 mmol/L (22-32); Chloride 105 mmol/L (98-107); Estimated Glomerular Filt Rate > 60.0 mL/min (>60); Globulin 2.6 g/dL (1.7-4.1); Glucose 100 mg/dL (80-110); HEMOLYSIS < 15 (0-50); Macrocytosis 3+; Potassium 4.2 mmol/L (3.4-5.1); Sodium 140 mmol/L (137-145)
[2020-07-07 12:49] LABS: Aspartate Aminotransferase 35 IU/L (17-59); Cholesterol 70 mg/dL (140-199); HDL Cholesterol 21 mg/dL (40-60); LDL Cholesterol Calculated 12 mg/dL (<100); Triglycerides 186 mg/dL (35-150)
[2020-07-07 13:21] LABS: Prostate Specific Antigen 6.04 ng/mL (0.10-4.00); TSH w/ Reflex to FT4 2.83 uIU/mL (0.47-4.68)
== END ==
PROVIDERS: Internal Medicine; Family Provider Specialist; PCP Internal Medicine; Referring Provider Internal Medicine; Visit Provider Internal Medicine
DX: E03.9 Hypothyroidism, unspecified (principal); R97.20 Elevated prostate specific antigen [PSA]; E78.2 Mixed hyperlipidemia; D47.3 Essential (hemorrhagic) thrombocythemia
CPT/HCPCS: 36415; 80053; 80061; 84153; 84443; 84450; 85025

== ENCOUNTER → 2020-07-26 11:20 | Outpatient (CLI) | payer MEDICARE, OTHER, SELFPAY ==
[2020-07-28 12:10] LABS: COVID19 Sendout Not Detected (Not Detect)
== END ==
PROVIDERS: Family Provider Specialist; PCP Internal Medicine; Visit Provider Physician Assistant
DX: Z11.59 Encounter for screening for other viral diseases (principal)
CPT/HCPCS: 87635

== ENCOUNTER 2020-07-29 07:43 | Day surgery (SDC) | payer MEDICARE, OTHER, SELFPAY ==
--- NOTE | 2020-07-29 | PATH_ITS ---
[facility] Accession Number: [id number] . 01 Material submitted: . PART A: body - RULE OUT HP BIOPSY PART B: body - 38CM BIOPSY . 01 Clinical history: . EGD W/POSS BX . 01 Diagnosis: A. Stomach, Biopsy: Gastric body mucosa with mild chronic inflammation. Negative for intestinal metaplasia on alcian blue stain. Negative for Helicobacter organisms by immunohistochemistry. Negative for dysplasia or malignancy. . B. Esophagus, 38 cm, Biopsy: Squamocolumnar junctional mucosa with specialized intestinal metaplasia, consistent with Maza's esophagus. Negative for dysplasia and malignancy. MRV 08/03/2020 1329 Local . 01 Electronically signed: . Soham Bob MD, PhD, Pathologist NPI- [id number] . 01 Gross description: . A. Received in formalin, labeled rule HP biopsy, and consists of two fernandez fragments of soft tissue measuring 0.6 x 0.3 x 0.2 cm in aggregate. The specimen is entirely submitted in cassette A1. B. Received in formalin, labeled 38 cm biopsy, and consists of four fernandez-pink fragments of soft tissue measuring 0.8 x 0.6 x 0.2 cm in aggregate. The specimen is entirely submitted in cassette B1. (EA/[id number]) /MRV 07/30/2020 1036 Local . 01 Microscopic: . An alcian blue stain is negative for intestinal metaplasia. An immunohistochemical stain is negative for Helicobacter organisms. Control stains show appropriate reactivity. . * This test was developed and its performance characteristics determined by [employer]. It has not been cleared or approved by the U.S. Food and Drug Administration. The FDA has determined that such clearance or approval is not necessary. This test is used for clinical purposes. It should not be regarded as investigational or for research. . 01 Pathologist provided ICD-10: K22.70, K29.70 . 01 CPT . 351471, 778065, L17923 Performed at: [address] [facility], [place], [place] [id number] MD Torsten Prescott MD Phone: [phone]
[2020-07-29 08:03] VITALS: BP 117/79; PULSE 68; RESP 18; TEMP 35.9; O2SAT 97; BMI 31.4
[2020-07-29] MEDS: LACTATED RINGERS 1,000 ML 42 ML IV (08:18)
[2020-07-29] MEDS: fentaNYL 250 MCG/5 ML INJ IV (08:50)
--- NOTE | 2020-07-29 08:52 | P.OP.ENDO_ITS ---
Operative Date/Time/Diagnoses Date of procedure: 07/29/20 Time of procedure: 08:52 Pre-op diagnosis: See indication and findings Procedure & Clinicians Study performed: EGD Same procedure as scheduled: Yes Indications: Short segment Maza's Surgeon: Emeka Casey Procedure Notes Procedure in detail: After informed consent was obtained the patient was placed in left lateral decubitus position. The video upper scope was placed into the oropharynx and with the patient's help 12 and the esophagus. The esophagus, stomach, duodenum were carefully examined. On withdrawal retroflexed view the GE junction was performed. The scope was removed. The patient tolerated procedure well. Blood loss none Complications none Sedation Total sedation time 10 minutes Versed 4 mg fentanyl 100 micro g IV titration Findings 1. Two erosions in the esophagus at 36 cm. Most consistent with reflux. 2. Irregular squamocolumnar junction with probable Maza's esophagus from 36 to near 39 cm at the site of the gastric folds. Biopsies were taken and all placed in 1 bottle labeled 38. This would be see 1.5 cm 2.5. 3. Two adjacent small gastric ulcers on the greater curvature midbody. Biopsies taken in the antrum to rule out Helicobacter 4. Normal duodenal bulb and sweep We will give results for his Maza's esophagus to him shortly and have follow- up and 3 years. With this risk for esophagitis and probable aspirin induced gastric ulcers he will need to be back on proton pump inhibitor and will send the sent to his pharmacy. He will need follow-up endoscopy in 8-12 weeks to ensure that his gastric ulcers have completely healed.
--- NOTE | 2020-07-29 08:52 | PM.PREOP ---
Pre-operative Note COVID-19 COVID-19 status: Negative Interval Note History & Physical reviewed/Exam performed by Physician: Yes Changes to H&P: No ASA Class (for procedural sedation): II
[2020-07-29] MEDS: MIDAZOLAM 5 MG/5 ML VIAL IV (08:55)
[2020-07-29 09:07] VITALS: BP 94/64; PULSE 62; RESP 12; TEMP 36.6; O2SAT 91
[2020-07-29 09:12] VITALS: BP 92/66; PULSE 61; RESP 12; TEMP 36.6; O2SAT 90
[2020-07-29 09:15] VITALS: BP 94/65; PULSE 60; RESP 12; O2SAT 91
[2020-07-29 09:19] VITALS: BP 94/65; PULSE 62; RESP 11; TEMP 36.6; O2SAT 93
[2020-07-29 10:56] VITALS: BP 111/76; PULSE 57; RESP 16; TEMP 35.8; O2SAT 96
--- NOTE | 2020-07-29 10:57 | SUR.PHASEII ---
pt arrived from PACU very sleepy, easily arrousable but falls asleep easily afterwards. Placed on pulse ox and was 91-92% on RA, placed on 2L O2 and sats up. Turned O2 off after about 30 min and sats 98% on RA. Once awake, Cordelia was d/c pt however since i had spoken to MD, spoke to pt about findings from MD.
== END 2020-07-29 11:00 | disposition home or self-care (01) ==
PROVIDERS: Family Provider Specialist; PCP Internal Medicine; Referring Provider Internal Medicine; Visit Provider Internal Medicine Gastroenterology
PROC: 0DJ08ZZ Inspection of Upper Intestinal Tract, Via Natural or Artificial Opening Endoscopic (ICD-10-PCS; CPT 43235; principal; 2020-07-29 09:00)
DX: K22.70 Barrett's esophagus without dysplasia (principal); K21.9 Gastro-esophageal reflux disease without esophagitis; E03.9 Hypothyroidism, unspecified; D47.3 Essential (hemorrhagic) thrombocythemia; E78.5 Hyperlipidemia, unspecified; K29.50 Unspecified chronic gastritis without bleeding
CPT/HCPCS: 43239; J2250; J3010

== ENCOUNTER → 2020-12-21 13:47 | Outpatient (CLI) | payer MEDICARE, OTHER, SELFPAY ==
[2020-12-21 16:46] LABS: COVID19 -Nasal RAPID Negative (Negative)
== END ==
PROVIDERS: Family Provider Specialist; PCP Internal Medicine; Visit Provider Physician Assistant
DX: Z01.812 Encounter for preprocedural laboratory examination (principal); Z20.822 Contact with and (suspected) exposure to COVID-19
CPT/HCPCS: 87635

== ENCOUNTER → 2020-12-21 13:50 | Outpatient (CLI) | payer MEDICARE, OTHER, SELFPAY ==
[2020-12-21 14:18] LABS: Add Manual Diff / Slide Review NO; Basophils Absolute Auto 100 /uL (0-100); Basophils Percent Auto 2.1 % (0-2); Eosinophils Absolute Auto 200 /uL (0-450); Eosinophils Percent Auto 3.1 % (2-4); Hematocrit 42.5 % (41-53); Hemoglobin 14.9 g/dL (13.5-17.5); Lymphocytes Absolute Auto 900 /uL (1100-4500); Lymphocytes Percent Auto 13.9 % (25-40); Mean Corpuscular Hemoglobin 41.2 PG (26-34); Mean Corpuscular Volume 117.7 fL (80-100); Monocytes Absolute Auto 1000 /uL (0-900); Monocytes Percent Auto 16.1 % (3-14); Neutrophils Absolute Auto 4100 /uL (1500-7000); Neutrophils Percent Auto 64.8 % (50-75); Platelet Count 533 X10^3/uL (150-400); Red Blood Cell Count 3.61 X10^6/uL (4.5-5.9); Red Cell Distribution Width 12.6 % (11.6-14.8); White Blood Cell Count 6.3 X10^3/uL (4.5-11.0)
[2020-12-21 14:29] LABS: Cholesterol 80 mg/dL (140-199); HDL Cholesterol 22 mg/dL (40-60); LDL Cholesterol Calculated 27 mg/dL (<100); Triglycerides 155 mg/dL (35-150)
[2020-12-21 14:45] LABS: Macrocytosis 2+
== END ==
PROVIDERS: Internal Medicine; Family Provider Specialist; PCP Internal Medicine; Referring Provider Internal Medicine; Visit Provider Internal Medicine
DX: Z01.812 Encounter for preprocedural laboratory examination (principal); Z20.822 Contact with and (suspected) exposure to COVID-19; D47.3 Essential (hemorrhagic) thrombocythemia; E78.2 Mixed hyperlipidemia
CPT/HCPCS: 36415; 80061; 85025; 87635; C9803

== ENCOUNTER 2020-12-23 09:51 | Day surgery (SDC) | payer MEDICARE, OTHER, SELFPAY ==
[2020-12-23] VITALS (7 sets, daily range): BP systolic 93–140; BP diastolic 57–82; PULSE 64–72; RESP 12–18; TEMP 36.4–36.8; O2SAT 92–96; BMI 31.4
--- NOTE | 2020-12-23 08:04 | PM.HP.1 ---
History of Present Illness History of Present Illness Date Patient Seen: 12/23/20 Chief complaint: EGD W/POSS BX Narrative: 70-year-old male who underwent EGD 07/29/2020 and was found to have Maza's esophagus and 2 gastric ulcers who is here for repeat EGD to evaluate healing of gastric ulcers Patient History Medical History (Updated 09/01/20 @ 16:07 by Deborah Villarreal MD) BPH w urinary obs/LUTS Elevated PSA GERD (gastroesophageal reflux disease) Surgical History H/O hernia repair Vasectomy status Family & Social History Social History: household members spouse Tobacco & Substance use: Smoking Status Former smoker alcohol intake frequency a few times a month Substance Use Type does not use Meds Home Medications and Allergies Home Medications Medication Instructions Recorded Confirmed Type vitamin B complex [B 1 tab PO QDAY #0 03/27/17 09/01/20 History Complex-Vitamin B12] Metamucil Fiber Singles 1 pac PO QAM #0 06/21/17 12/23/20 History acetaminophen [Tylenol Extra 500 mg PO Q4HP PRN #0 06/21/17 12/23/20 History Strength] Ocuvite Eye Health 1 tab DAILY 04/30/19 12/23/20 History rosuvastatin [Crestor] 10 mg PO DAILY 07/30/19 12/23/20 History levothyroxine 75 mcg PO DAILY 10/29/19 12/23/20 History hydroxyurea 1,000 mg PO DAILY #225 cap 06/23/20 12/23/20 Rx gabapentin 300 mg capsule 300 mg PO BID 08/24/20 12/23/20 History pantoprazole 40 mg granules 40 mg PO DAILY 08/27/20 12/23/20 History delayed-release for susp in packet tamsulosin 0.4 mg capsule 0.4 mg PO DAILY #90 cap 09/09/20 Rx Allergies Allergy/AdvReac Type Severity Reaction Status Date / Time lidocaine [LIDOCAINE] Allergy Severe all the Verified 09/01/20 15:22 'mari' make my throat swell up Exam Narrative Exam Narrative: General: Patient is well developed, not in apparent distress Cardiovascular: Regular rate and rhythm, no murmurs, rubs, or gallops; no evidence of edema; no palpable abdominal aortic aneurysm Gastrointestinal: Normoactive bowel sounds, soft, nontender, nondistended, no rebound tenderness, no hepatosplenomegaly, no evidence of hernia Assessment & Plan Assessment & Plan narrative: 70-year-old male with history of gastric ulcers on EGD 07/29/2020 who is here for follow-up EGD to assess healing of ulcers Regarding the procedure(s), the risks and potential complications, benefits, and alternatives (including not doing the procedure) were discussed with the patient. The risks include but are not limited to bleeding, splenic injury, infection, perforation which may require surgical intervention, missed lesions, and adverse reactions to sedative medicines. After a question and answer period, the patient agreed to proceed with the procedure(s) and gives informed consent.
[2020-12-23] MEDS: SODIUM CHLORIDE 0.9% 1,000 ML 70 ML IV (10:39)
[2020-12-23] MEDS: fentaNYL 250 MCG/5 ML INJ IV (10:46)
--- NOTE | 2020-12-23 10:47 | P.OP.ENDO_ITS ---
Operative Date/Time/Diagnoses Date of procedure: 12/23/20 Procedure Notes Procedure in detail: Surgeon: Daniel Yoon MD Procedure: Esophagogastroduodenoscopy Preoperative diagnosis: History of gastric ulcers on endoscopy 07/29/2020; Maza's esophagus Postoperative diagnosis: Short-segment Maza's esophagus, intact fundoplication, no evidence of residual gastric ulcers Medications: Conscious sedation using 5 mg IV of Midazolam and 100 mcg IV of Fentanyl Preanesthesia Assessment An H and P was performed/updated and the Px?s ASA class is 2. The procedure was discussed in detail with the patient. The potential risks and complications including infection, bleeding, missed lesions, perforation, need for surgery in case of perforation, prolonged hospital stay, and were explained. A brief question and answer period was allotted and once all questions were answered, informed consent was obtained. The patient was brought back to the procedure room and placed on standard monitoring. The patient?s vital signs were monitored continuously throughout the entire procedure. Prior to starting, a timeout was performed to confirm the patient?s identity, allergies, medications, and procedure. Procedure in detail The patient was placed in left lateral decubitus position and a bite block was inserted. The tip of the upper endoscope was placed into the mouth and advanced without difficulty under direct visualization into the esophagus. Esophagus: There was evidence of Maza's esophagus extending from 37 cm from the incisors to 39 cm from the incisors, C1M2. Biopsies were done previously with no evidence of dysplasia. Gastric folds were located at 39 cm. Stomach: There was a small amount of residual food in the stomach which was cleared by lavage and suctioning. There is no note of any residual uptake ulcers in the stomach along the greater curvature. Prior biopsies already taken for H pylori which were negative On retroflexion, there was note of postoperative findings which appear consistent with fundoplication Duodenum: The visualized duodenum up to the 2nd portion appeared normal The patient tolerated the procedure well and will be brought back to the recovery area to be discharged once criteria are met. The total physician in traservice time was 10 minutes. Complications There were no complications and estimated blood loss was none. Recommendations: Resume previous diet Anti-reflux measures Continue outPx medications Repeat EGD for Maza's surveillance due in July 2023 Follow-up with Dr. Casey if with any new GI symptoms An emergency contact number was given to the patient for any complications related to the procedure
[2020-12-23] MEDS: MIDAZOLAM 5 MG/5 ML VIAL IV (10:50)
== END 2020-12-23 11:32 | disposition home or self-care (01) ==
PROVIDERS: Family Provider Specialist; PCP Internal Medicine; Referring Provider Internal Medicine; Visit Provider Internal Medicine Gastroenterology
PROC: 0DJ08ZZ Inspection of Upper Intestinal Tract, Via Natural or Artificial Opening Endoscopic (ICD-10-PCS; CPT 43235; principal; 2020-12-23 11:00)
DX: K22.70 Barrett's esophagus without dysplasia (principal); K21.9 Gastro-esophageal reflux disease without esophagitis
CPT/HCPCS: 43239; J2250; J3010

== ENCOUNTER → 2021-04-28 15:22 | Outpatient (CLI) | payer MEDICARE, OTHER, SELFPAY ==
[2021-04-28 17:27] LABS: Clostridium Difficile Tox PCR Positive for C. diff (Negative)
[2021-04-29 12:56] LABS: C difficie Toxins A and B, EIA Negative (Negative)
== END ==
PROVIDERS: Family Provider Specialist; PCP Internal Medicine; Referring Provider Internal Medicine; Visit Provider Internal Medicine
DX: R19.7 Diarrhea, unspecified (principal)
CPT/HCPCS: 87045; 87177; 87493; 87899

== ENCOUNTER → 2021-12-09 09:40 | Outpatient (CLI) | payer MEDICARE, OTHER, SELFPAY ==
--- NOTE | 2021-12-09 | DI.US.S_ITS ---
PROCEDURE: US ABD AORTA ANEURYSM SCREEN INDICATIONS: Encounter for screening for cardiovascular disorde TECHNIQUE: Real time scanning was performed of the aorta and iliac arteries, with image documentation. COMPARISON: [facility], , CT ABDOMEN/PELVIS W/WO CONTRAST, 03/22/2002, 17:05. [facility], , ABDOMEN LIMITED, 04/03/2017, 9:08. [facility], , US ABDOMEN LIMITED, 06/13/2018, 10:41. FINDINGS: Aorta: Proximal aorta is not well seen, yet measures 2.2 cm. Mid-aorta is also not well seen and measures 2.1 cm. Distal aortic diameter is 1.5 cm. Iliac arteries: Right common iliac artery measures 1.1 cm. Left common iliac artery measures 1 cm. This study is limited by body habitus. A septated cystic mass of the right kidney can be seen that measures 12.1 x 8.9 x 8.3 cm. IMPRESSION: Negative for aneurysm. There is a septated cystic mass of the right kidney, which has clearly grown compared to 2001. When clinically appropriate, please consider a dedicated renal mass protocol CT (without and with contrast) for further evaluation. Dictated by: Dyllan Graff M.D. on 12/09/2021 at 9:38 Approved by: Dyllan Graff M.D. on 12/09/2021 at 9:41
--- NOTE | 2021-12-09 | DI.RAD.S_ITS ---
PROCEDURE: XR HIP W PEL IF DONE LT 2V INDICATIONS: LEFT HIP PAIN TECHNIQUE: AP pelvis with lateral view(s) of the left hip(s). COMPARISON: [facility], , CT ABDOMEN/PELVIS W/WO CONTRAST, 03/22/2002, 17:05. FINDINGS: Bones: No fractures or dislocations. Pelvic ring appears intact. No suspicious bony lesions. Fajq-fr-kmduxewf symmetric hip joint degeneration bilaterally, left greater than right. Soft tissues: The visualized bowel gas pattern is normal. No suspicious soft tissue calcifications. There are multiple surgical clips over the left hip, unchanged from 12/27/2013. 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 Dictated by: Logan Olvera M.D. on 12/09/2021 at 11:19 Approved by: Logan Olvera M.D. on 12/09/2021 at 11:21
[2021-12-09 11:06] LABS: Add Manual Diff / Slide Review NO; Basophils Absolute Auto 100 /uL (0-100); Basophils Percent Auto 2.3 % (0-2); Eosinophils Absolute Auto 200 /uL (0-450); Eosinophils Percent Auto 3.5 % (2-4); Hematocrit 41.1 % (41-53); Hemoglobin 14.6 g/dL (13.5-17.5); Lymphocytes Absolute Auto 900 /uL (1100-4500); Lymphocytes Percent Auto 17.2 % (25-40); Mean Corpuscular HGB Conc 35.6 % (30-36); Mean Corpuscular Hemoglobin 43.1 PG (26-34); Monocytes Absolute Auto 1000 /uL (0-900); Monocytes Percent Auto 18.8 % (3-14); Neutrophils Absolute Auto 3000 /uL (1500-7000); Neutrophils Percent Auto 58.2 % (50-75); Platelet Count 451 X10^3/uL (150-400); Red Cell Distribution Width 12.5 % (11.6-14.8); White Blood Cell Count 5.1 X10^3/uL (4.5-11.0)
[2021-12-09 11:23] LABS: Macrocytosis 2+
== END ==
PROVIDERS: Family Provider Specialist; PCP Internal Medicine; Referring Provider Internal Medicine Medical Oncology; Visit Provider Internal Medicine
DX: M16.0 Bilateral primary osteoarthritis of hip (principal); Z13.6 Encounter for screening for cardiovascular disorders; N28.89 Other specified disorders of kidney and ureter; M25.552 Pain in left hip; D47.3 Essential (hemorrhagic) thrombocythemia
CPT/HCPCS: 36415; 73502; 76706; 85025

== ENCOUNTER → 2022-04-13 10:38 | Outpatient (CLI) | payer MEDICARE, OTHER, SELFPAY ==
[2022-04-14 07:14] LABS: PSA Free % 10.2 % (.); PSA, Total 11.5 ng/mL (0.0-4.0)
== END ==
PROVIDERS: Family Provider Specialist; PCP Internal Medicine; Referring Provider Urology; Visit Provider Urology
DX: C61 Malignant neoplasm of prostate (principal); R97.20 Elevated prostate specific antigen [PSA]
CPT/HCPCS: 36415; 84153; 84154

== ENCOUNTER → 2022-04-29 07:10 | Outpatient (CLI) | payer MEDICARE, OTHER, SELFPAY ==
--- NOTE | 2022-04-29 | DI.MRI.S_ITS ---
PROCEDURE: MR PELIS WO/W CON INDICATIONS: ELEVATED PSA TECHNIQUE: Coronal HASTE, axial T1 FSE with fat saturation, 3-plane nonbreath-hold T2 FSE. After the administration of contrast, dynamic axial, delayed axial and coronal VIBE or 2-D FLASH with fat saturation through the pelvis. Optional diffusion weighted imaging and ADC may be performed. COMPARISON: [facility], CR, XR LUMBAR SPINE WITH OBLIQUES PLUS FLEXION EXTENSION, 04/12/2022, 13:06. FINDINGS: Image quality: Diffusion weighted and dynamic contrast enhanced images are diagnostic. Prostate: Gland size is 5.6 x 4.2 x 3.8 cm; ellipsoid gland volume is 46 mL. A small curvilinear focus of intrinsic T1 hyperintensity in the right apex peripheral zone. This could represent hemorrhage. Several BPH nodules. Lesion size(s): Lesion 1: 2 x 1.2 cm, (/). Lesion 2: 0.8 x 0.7 cm, (/). Lesion 3: 0.4 cm, (/). Lesion location(s) (sector): Lesion 1: Right mid gland/base peripheral zone. Lesion 2: Right apex peripheral zone. Lesion 3: Left apex peripheral zone. Lesion description: Lesion 1: Oval and irregular Lesion 2: Oval Lesion 3: Oval T2 weighted imaging (T2WI) morphology score: Lesion 1: 5 Lesion 2: 3 Lesion 3: 3 Diffusion weighted imaging (DWI) morphology score: Lesion 1: 5 Lesion 2: 3 Lesion 3: 3 Dynamic contrast enhancement (DCE): Lesion 1: Present Lesion 2: Absent Lesion 3: Absent Lesion PI-RADS score: Lesion 1: PI-RADS 5. Possible extraprostatic extension. Lesion 2: PI-RADS 3 Lesion 3: PI-RADS 3 Genitourinary system: Bladder wall thickness is normal. Distal ureters are non distended. Bowel and peritoneum: No pathologic free pelvic fluid. Inferior colon and small bowel loops are normal in caliber. Diverticulosis. Nodes and vessels: No pelvic or inguinal adenopathy by size criteria. Iliac vessels are normal in caliber. Soft tissues: No inguinal hernias. Prior left inguinal hernia repair. Bones: Marrow demonstrates normal overall signal, without lesions to suggest metastases. IMPRESSION: 1. Right mid gland/base peripheral zone observation measuring 2 cm. PI-RADS 5. Possible extraprostatic extension. 2. Right apex peripheral zone observation measuring 0.8 cm. PI-RADS 3. 3. Left apex peripheral zone observation measuring 0.4 cm. PI-RADS 3. 4. No enlarged lymph nodes identified. Dictated by: Imtiaz Hwang M.D. on 04/29/2022 at 16:43 Approved by: Imtiaz Hwang M.D. on 04/29/2022 at 17:02
== END ==
PROVIDERS: Family Provider Specialist; PCP Internal Medicine; Referring Provider Urology; Visit Provider Urology
DX: R97.20 Elevated prostate specific antigen [PSA] (principal)
CPT/HCPCS: 72197; A9579

== ENCOUNTER → 2022-10-26 10:50 | Outpatient (CLI) | payer MEDICARE, OTHER, SELFPAY ==
[2022-10-27 07:46] LABS: PSA, Total < 0.1 ng/mL (0.0-4.0)
== END ==
PROVIDERS: Family Provider Specialist; PCP Internal Medicine; Referring Provider Urology; Visit Provider Urology
DX: C61 Malignant neoplasm of prostate (principal); R97.20 Elevated prostate specific antigen [PSA]
CPT/HCPCS: 36415; 84153; 84154

== ENCOUNTER 2022-11-01 13:00 | Outpatient (RCR) | payer MEDICARE, OTHER, SELFPAY ==
--- NOTE | 2022-09-27 16:00 | PT.OIE ---
Current Diagnoses Malignant neoplasm of prostate (09/27/22) Stress incontinence (female) (male) (09/27/22) Past Medical History (Last Reviewed 05/13/21 @ 12:17 by Deborah Villarreal MD) BPH w urinary obs/LUTS Elevated PSA GERD (gastroesophageal reflux disease) Past Surgical History (Last Reviewed 05/13/21 @ 12:17 by Deborah Villarreal MD) H/O hernia repair Vasectomy status Visit Care Team Role Provider Type Anthony Quan MD Primary Care Provider Physician Specialty: Internal Medicine Address: [address] [place] [address], [id number] Email: Deborah Villarreal MD Family Provider Physician Specialty: Urology Address: [address] [place] [address], [id number] Email: Gilberto Farooq MD Attending Provider Non-Staff Referring Provider Specialty: Medical Address: [address] [place] [address], [id number] Email: Physical Therapy Initial Evaluation PT-OP-A Visit Information Start: 09/26/22 10:10 Freq: Status: Active Protocol: Document 09/27/22 13:00 AMB (Rec: 09/27/22 15:55 AMB [id number]) Out-Patient Physical Therapy Visit Information Visit Information Visit Type Initial Evaluation Visit Start Time 13:00 Visit Stop Time 13:45 Total Visit Minutes 45 Visit Number 1 PT-OP-B Current Condition Start: 09/26/22 10:10 Freq: Status: Active Protocol: Document 09/27/22 13:01 AMB (Rec: 09/27/22 13:49 AMB [id number]) Current Condition History of Current Condition Onset Date June 21 Current Complaints Leaking after prostate removal History of Current Condition Pt had surgery for prostate cancer in June. Had a catheter for a week or two and then started leaking. He reports he doesn't really leak when sitting, but at all other times leaks, he feels fairly constanty. Especially bad with sit to stand. Can't really stop the flow once it starts. Uses guards in addition to diaper. Uses about 1 guard an hour. Wasn't leaking before surgery. Denies constipation. Personal Factors Other Personal Factors That May Effect old open abdominal surgery Therapy/Recovery PT-OP-C Subjective Start: 09/26/22 10:10 Freq: Status: Active Protocol: Document 09/27/22 13:00 AMB (Rec: 09/27/22 15:55 AMB [id number]) Patient Questionnaires Pelvic Pain and Urgency/Frequency Patient Symptom Scale Pelvic Pain Score 19 PT-OP-I Pelvic Floor Start: 09/26/22 10:10 Freq: Status: Active Protocol: Document 09/27/22 13:00 AMB (Rec: 09/27/22 15:55 AMB [id number]) Pelvic Floor Assessment Urine Pelvic Floor Surgery Yes: prostate Leakage Size Large Leakage Cause Cough,Exercise,Lifting,Sneeze, Urge Other Leakage Causes near constant leakage, especially sit to stand Leaks Per Day 100+ Voiding Frequency 20+ Nocturia 4+ Pads Used In 24 Hours 1/hr Urine Pad Type Depends Bowel Bowel Surgery No Bowel Movement Frequency 1/day [place] Stool Chart Type 1-7 5 SEMG (uV) Baseline 3 10 Second Contraction 17 Recruitment Pattern Fair Relaxation Good Holding Fair Stability of Hold Good SEMG Stability of Rest Good PT-OP-T Assessment and Plan Start: 09/26/22 10:10 Freq: Status: Active Protocol: Document 09/27/22 13:00 AMB (Rec: 09/30/22 11:39 AMB [id number]) Physical Therapy Assessment Rehab Potential Rehabilitation Potential Good Evaluation Complexity Number of Personal Factors/Comorbidities 1-2 Number of Body Systems Impaired 1-2 Clinical Presentation at Evaluation Stable Impairments Impairments Functional Activities,Strength Goals Two Impairment Pelvic floor strength Short Term Goal (STG) Cuco will perform a pelvic floor contraction for 10 seconds in sitting without compensation with abdominals or breath holding. STG Duration 4 weeks Intermediate Goal (LTG) Cuco will move from sit to stand while maintaining a pelvic floor contraction to show improved strength. LTG Duration 8 weeks One Impairment Incontinence Short Term Goal (STG) Cuco will move from sit to stand without leaking. STG Duration 4 weeks Technology Lab Teacher Goal (LTG) Cuco will roll over in bed without leaking. LTG Duration 10 weeks Assessment Summary Assessment Cuco attends physical therapy 3 months s/p prostate surgery with what he describes as near constant urinary leakage that he thinks is worsening. He is leaking at night and especially with activity such as standing, walking, or moving from sit to stand. He was assessed with sEMG and was able to sustain a pelvic floor contraction, but at a low level and he required significant concentration to avoid substitution with abdominals or breath holding. He will benefit from physical therapy to progress his pelvic floor strengthening so that he is less incontinent. Physical Therapy Plan Frequency and Duration Frequency of Treatment 1x/Week Duration of treatment (weeks) 10 Plan of Care Start Date 09/27/22 Plan of Care End Date 12/06/22 Therapeutic Interventions Therapeutic Interventions Home Exercise Program,Manual Therapy,Neuromuscular Re- education,Self-Care/Home Management,Therapeutic Activities,Therapeutic Exercises Modalities Biofeedback,Electric Stimulation Next Visit Focus/Plan Next Note Type Treatment Note Next Visit Plan continue with sEMG, progress HEP start supine/seated
--- NOTE | 2022-09-27 16:00 | PT.OPPOC ---
Physical, Occupational & Speech Therapy At [facility] Current Diagnoses Malignant neoplasm of prostate (09/27/22) Stress incontinence (female) (male) (09/27/22) Visit Care Team Role Provider Type Anthony Quan MD Primary Care Provider Physician Specialty: Internal Medicine Address: [address] [place] [address], [id number] Email: Deborah Villarreal MD Family Provider Physician Specialty: Urology Address: [address] [place] [address], [id number] Email: Gilberto Farooq MD Attending Provider Non-Staff Referring Provider Specialty: Medical Address: [address] [place] [address] Email: Plan Of Care PT-OP-T Assessment and Plan Start: 09/26/22 10:10 Freq: Status: Active Protocol: Document 09/27/22 13:00 AMB (Rec: 09/30/22 11:39 AMB [id number]) Physical Therapy Assessment Rehab Potential Rehabilitation Potential Good Evaluation Complexity Number of Personal Factors/Comorbidities 1-2 Number of Body Systems Impaired 1-2 Clinical Presentation at Evaluation Stable Impairments Impairments Functional Activities,Strength Goals Two Impairment Pelvic floor strength Short Term Goal (STG) Cuco will perform a pelvic floor contraction for 10 seconds in sitting without compensation with abdominals or breath holding. STG Duration 4 weeks Mcfp Goal (LTG) Cuco will move from sit to stand while maintaining a pelvic floor contraction to show improved strength. LTG Duration 8 weeks One Impairment Incontinence Short Term Goal (STG) Cuco will move from sit to stand without leaking. STG Duration 4 weeks Mcfp Goal (LTG) Cuco will roll over in bed without leaking. LTG Duration 10 weeks Assessment Summary Assessment Cuco attends physical therapy 3 months s/p prostate surgery with what he describes as near constant urinary leakage that he thinks is worsening. He is leaking at night and especially with activity such as standing, walking, or moving from sit to stand. He was assessed with sEMG and was able to sustain a pelvic floor contraction, but at a low level and he required significant concentration to avoid substitution with abdominals or breath holding. He will benefit from physical therapy to progress his pelvic floor strengthening so that he is less incontinent. Physical Therapy Plan Frequency and Duration Frequency of Treatment 1x/Week Duration of treatment (weeks) 10 Plan of Care Start Date 09/27/22 Plan of Care End Date 12/06/22 Therapeutic Interventions Therapeutic Interventions Home Exercise Program,Manual Therapy,Neuromuscular Re- education,Self-Care/Home Management,Therapeutic Activities,Therapeutic Exercises Modalities Biofeedback,Electric Stimulation Next Visit Focus/Plan Next Note Type Treatment Note Next Visit Plan continue with sEMG, progress HEP start supine/seated Plan of Care Dates Plan of Care Start Date 09/27/22 Plan of Care End Date 12/06/22 Electronically Signed by: Margo Abbott, PT 09/30/22 3010 If you are in agreement with this Plan of Care, please return a signed and dated copy. I have reviewed this Plan of Care and certify that the skilled therapy services above are required to meet the patient?s needs. Physician Signature Date Printed Name and Credentials Clinical Instructor Signature Printed Name and Credentials
--- NOTE | 2022-10-04 16:00 | PT.OTN ---
Current Diagnoses Malignant neoplasm of prostate (10/04/22) Stress incontinence (female) (male) (10/04/22) Physical Therapy Treatment Note PT-OP-A Visit Information Start: 09/26/22 10:10 Freq: Status: Active Protocol: Document 10/04/22 13:01 AMB (Rec: 10/04/22 13:49 AMB [id number]) Out-Patient Physical Therapy Visit Information Visit Information Visit Type Treatment Note Visit Start Time 13:00 Visit Stop Time 13:45 Total Visit Minutes 45 Visit Number 2 PT-OP-B Current Condition Start: 09/26/22 10:10 Freq: Status: Active Protocol: Document 09/27/22 13:01 AMB (Rec: 09/27/22 13:49 AMB [id number]) Current Condition History of Current Condition Onset Date June 21 Current Complaints Leaking after prostate removal History of Current Condition Pt had surgery for prostate cancer in June. Had a catheter for a week or two and then started leaking. He reports he doesn't really leak when sitting, but at all other times leaks, he feels fairly constanty. Especially bad with sit to stand. Can't really stop the flow once it starts. Uses guards in addition to diaper. Uses about 1 guard an hour. Wasn't leaking before surgery. Denies constipation. Personal Factors Other Personal Factors That May Effect old open abdominal surgery Therapy/Recovery PT-OP-C Subjective Start: 09/26/22 10:10 Freq: Status: Active Protocol: Document 10/04/22 13:01 AMB (Rec: 10/04/22 13:49 AMB [id number]) OP-PT Subjective Patient Comments Patient Comments Difficult sleeping, having a hard time concentrating on exercises. PT-OP-I Pelvic Floor Start: 09/26/22 10:10 Freq: Status: Active Protocol: Document 09/27/22 13:00 AMB (Rec: 09/27/22 15:55 AMB [id number]) Pelvic Floor Assessment Urine Pelvic Floor Surgery Yes: prostate Leakage Size Large Leakage Cause Cough,Exercise,Lifting,Sneeze, Urge Other Leakage Causes near constant leakage, especially sit to stand Leaks Per Day 100+ Voiding Frequency 20+ Nocturia 4+ Pads Used In 24 Hours 1/hr Urine Pad Type Depends Bowel Bowel Surgery No Bowel Movement Frequency 1/day [place] Stool Chart Type 1-7 5 SEMG (uV) Baseline 3 10 Second Contraction 17 Recruitment Pattern Fair Relaxation Good Holding Fair Stability of Hold Good SEMG Stability of Rest Good PT-OP-Q Treatments Start: 09/26/22 10:10 Freq: Status: Active Protocol: Document 10/04/22 13:00 AMB (Rec: 10/09/22 09:25 AMB [id number]) Therapeutic Exercises Sitting Exercises 2 Sitting Exercise Name quick flicks/ long holds in sitting Comments focusing on breath 1 Sitting Exercise Name roll in roll out Resistance #2 t band Reps/Minutes 2x10 Standing Exercises sit to stand Standing Exercise Name long holds vc breath Comments challenging PT-OP-T Assessment and Plan Start: 09/26/22 10:10 Freq: Status: Active Protocol: Document 10/04/22 13:01 AMB (Rec: 10/04/22 13:49 AMB [id number]) Physical Therapy Assessment Goals Two Impairment Pelvic floor strength Short Term Goal (STG) Cuco will perform a pelvic floor contraction for 10 seconds in sitting without compensation with abdominals or breath holding. STG Duration 4 weeks Senior Care Goal (LTG) Cuco will move from sit to stand while maintaining a pelvic floor contraction to show improved strength. LTG Duration 8 weeks One Impairment Incontinence Short Term Goal (STG) Cuco will move from sit to stand without leaking. STG Duration 4 weeks Senior Care Goal (LTG) Cuco will roll over in bed without leaking. LTG Duration 10 weeks Assessment Summary Assessment Focused on exercising with functional activities as pt has been having a hard time concentrating on exercises. Ccuo may benefit from sEMG vs biofeedback to really feel contraction more. Physical Therapy Plan Frequency and Duration Frequency of Treatment 1x/Week Duration of treatment (weeks) 10 Plan of Care Start Date 09/27/22 Plan of Care End Date 12/06/22 Therapeutic Interventions Therapeutic Interventions Home Exercise Program,Manual Therapy,Neuromuscular Re- education,Self-Care/Home Management,Therapeutic Activities,Therapeutic Exercises Modalities Biofeedback,Electric Stimulation Next Visit Focus/Plan Next Note Type Treatment Note Next Visit Plan continue with sEMG, progress HEP start supine/seated
--- NOTE | 2022-10-10 08:59 | PT.OTN ---
Current Diagnoses Malignant neoplasm of prostate (10/10/22) Stress incontinence (female) (male) (10/10/22) Physical Therapy Treatment Note PT-OP-A Visit Information Start: 09/26/22 10:10 Freq: Status: Active Protocol: Document 10/10/22 08:13 AMB (Rec: 10/10/22 08:58 AMB [id number]) Out-Patient Physical Therapy Visit Information Visit Information Visit Type Treatment Note Visit Start Time 08:15 Visit Stop Time 09:00 Total Visit Minutes 45 Visit Number 3 PT-OP-B Current Condition Start: 09/26/22 10:10 Freq: Status: Active Protocol: Document 09/27/22 13:01 AMB (Rec: 09/27/22 13:49 AMB [id number]) Current Condition History of Current Condition Onset Date June 21 Current Complaints Leaking after prostate removal History of Current Condition Pt had surgery for prostate cancer in June. Had a catheter for a week or two and then started leaking. He reports he doesn't really leak when sitting, but at all other times leaks, he feels fairly constanty. Especially bad with sit to stand. Can't really stop the flow once it starts. Uses guards in addition to diaper. Uses about 1 guard an hour. Wasn't leaking before surgery. Denies constipation. Personal Factors Other Personal Factors That May Effect old open abdominal surgery Therapy/Recovery PT-OP-C Subjective Start: 09/26/22 10:10 Freq: Status: Active Protocol: Document 10/10/22 08:13 AMB (Rec: 10/10/22 08:58 AMB [id number]) OP-PT Subjective Patient Comments Patient Comments Getting some pain with roll in roll out in the hip. PT-OP-I Pelvic Floor Start: 09/26/22 10:10 Freq: Status: Active Protocol: Document 09/27/22 13:00 AMB (Rec: 09/27/22 15:55 AMB [id number]) Pelvic Floor Assessment Urine Pelvic Floor Surgery Yes: prostate Leakage Size Large Leakage Cause Cough,Exercise,Lifting,Sneeze, Urge Other Leakage Causes near constant leakage, especially sit to stand Leaks Per Day 100+ Voiding Frequency 20+ Nocturia 4+ Pads Used In 24 Hours 1/hr Urine Pad Type Depends Bowel Bowel Surgery No Bowel Movement Frequency 1/day [place] Stool Chart Type 1-7 5 SEMG (uV) Baseline 3 10 Second Contraction 17 Recruitment Pattern Fair Relaxation Good Holding Fair Stability of Hold Good SEMG Stability of Rest Good PT-OP-Q Treatments Start: 09/26/22 10:10 Freq: Status: Active Protocol: Document 10/10/22 08:13 AMB (Rec: 10/10/22 08:58 AMB [id number]) Therapeutic Exercises Sitting Exercises 2 Sitting Exercise Name quick flicks/ long holds in sitting Reps/Minutes 10 min Comments focusing on breath Standing Exercises standing medium holds Standing Exercise Name heavy cues for timing Reps/Minutes 10 PT-OP-T Assessment and Plan Start: 09/26/22 10:10 Freq: Status: Active Protocol: Document 10/10/22 08:13 AMB (Rec: 10/10/22 08:58 AMB [id number]) Physical Therapy Assessment Goals Two Impairment Pelvic floor strength Short Term Goal (STG) Cuco will perform a pelvic floor contraction for 10 seconds in sitting without compensation with abdominals or breath holding. STG Duration 4 weeks Fdc Goal (LTG) Cuco will move from sit to stand while maintaining a pelvic floor contraction to show improved strength. LTG Duration 8 weeks One Impairment Incontinence Short Term Goal (STG) Cuco will move from sit to stand without leaking. STG Duration 4 weeks Fdc Goal (LTG) Cuco will roll over in bed without leaking. LTG Duration 10 weeks Assessment Summary Assessment Offered NMES but pt not especially interested. Continues to find it difficult to pay attention to exercises , especially with the long holds. Physical Therapy Plan Frequency and Duration Frequency of Treatment 1x/Week Duration of treatment (weeks) 10 Plan of Care Start Date 09/27/22 Plan of Care End Date 12/06/22 Therapeutic Interventions Therapeutic Interventions Home Exercise Program,Manual Therapy,Neuromuscular Re- education,Self-Care/Home Management,Therapeutic Activities,Therapeutic Exercises Modalities Biofeedback,Electric Stimulation Next Visit Focus/Plan Next Note Type Treatment Note Next Visit Plan continue with sEMG, progress HEP start supine/seated
--- NOTE | 2022-10-18 13:46 | PT.OTN ---
Current Diagnoses Malignant neoplasm of prostate (10/18/22) Stress incontinence (female) (male) (10/18/22) Physical Therapy Treatment Note PT-OP-A Visit Information Start: 09/26/22 10:10 Freq: Status: Active Protocol: Document 10/18/22 13:01 AMB (Rec: 10/18/22 13:46 AMB [id number]) Out-Patient Physical Therapy Visit Information Visit Information Visit Type Treatment Note Visit Start Time 13:00 Visit Stop Time 13:45 Total Visit Minutes 45 Visit Number 4 PT-OP-B Current Condition Start: 09/26/22 10:10 Freq: Status: Active Protocol: Document 09/27/22 13:01 AMB (Rec: 09/27/22 13:49 AMB [id number]) Current Condition History of Current Condition Onset Date June 21 Current Complaints Leaking after prostate removal History of Current Condition Pt had surgery for prostate cancer in June. Had a catheter for a week or two and then started leaking. He reports he doesn't really leak when sitting, but at all other times leaks, he feels fairly constanty. Especially bad with sit to stand. Can't really stop the flow once it starts. Uses guards in addition to diaper. Uses about 1 guard an hour. Wasn't leaking before surgery. Denies constipation. Personal Factors Other Personal Factors That May Effect old open abdominal surgery Therapy/Recovery PT-OP-C Subjective Start: 09/26/22 10:10 Freq: Status: Active Protocol: Document 10/18/22 13:01 AMB (Rec: 10/18/22 13:46 AMB [id number]) OP-PT Subjective Patient Comments Patient Comments Pt has noticed that he can get to the toilet and there is a little bit to urinate. Also sleeping a little bit longer at a time. Getting a shot in the hip tomorrow. PT-OP-I Pelvic Floor Start: 09/26/22 10:10 Freq: Status: Active Protocol: Document 09/27/22 13:00 AMB (Rec: 09/27/22 15:55 AMB [id number]) Pelvic Floor Assessment Urine Pelvic Floor Surgery Yes: prostate Leakage Size Large Leakage Cause Cough,Exercise,Lifting,Sneeze, Urge Other Leakage Causes near constant leakage, especially sit to stand Leaks Per Day 100+ Voiding Frequency 20+ Nocturia 4+ Pads Used In 24 Hours 1/hr Urine Pad Type Depends Bowel Bowel Surgery No Bowel Movement Frequency 1/day [place] Stool Chart Type 1-7 5 SEMG (uV) Baseline 3 10 Second Contraction 17 Recruitment Pattern Fair Relaxation Good Holding Fair Stability of Hold Good SEMG Stability of Rest Good PT-OP-Q Treatments Start: 09/26/22 10:10 Freq: Status: Active Protocol: Document 10/18/22 13:01 AMB (Rec: 10/18/22 13:46 AMB [id number]) Therapeutic Exercises Sitting Exercises 2 Sitting Exercise Name quick flicks/ long holds in sitting Reps/Minutes 10 min Comments focusing on breath Standing Exercises standing medium holds Standing Exercise Name heavy cues for timing Reps/Minutes 10 sit to stand Standing Exercise Name long holds vc breath Comments challenging PT-OP-T Assessment and Plan Start: 09/26/22 10:10 Freq: Status: Active Protocol: Document 10/18/22 13:01 AMB (Rec: 10/18/22 13:46 AMB [id number]) Physical Therapy Assessment Goals Two Impairment Pelvic floor strength Short Term Goal (STG) Cuco will perform a pelvic floor contraction for 10 seconds in sitting without compensation with abdominals or breath holding. STG Duration 4 weeks Assisted Goal (LTG) Cuco will move from sit to stand while maintaining a pelvic floor contraction to show improved strength. LTG Duration 8 weeks One Impairment Incontinence Short Term Goal (STG) Cuco will move from sit to stand without leaking. STG Duration 4 weeks [employer] Goal (LTG) Cuco will roll over in bed without leaking. LTG Duration 10 weeks Assessment Summary Assessment Pt encouraged to slowly release rather that just letting it drop. Was able to hold pelvic floor when moving from sit to stand, but then as soon as he released felt urine go. Physical Therapy Plan Next Visit Focus/Plan Next Note Type Treatment Note Next Visit Plan continue with sEMG, progress HEP start supine/seated
--- NOTE | 2022-11-01 13:58 | PT.OTN ---
Current Diagnoses Malignant neoplasm of prostate (10/18/22) Stress incontinence (female) (male) (10/18/22) Physical Therapy Treatment Note PT-OP-A Visit Information Start: 09/26/22 10:10 Freq: Status: Active Protocol: Document 11/01/22 13:06 AMB (Rec: 11/01/22 13:58 AMB [id number]) Out-Patient Physical Therapy Visit Information Visit Information Visit Type Treatment Note Visit Start Time 13:00 Visit Stop Time 13:45 Total Visit Minutes 45 Visit Number 5 PT-OP-B Current Condition Start: 09/26/22 10:10 Freq: Status: Active Protocol: Document 09/27/22 13:01 AMB (Rec: 09/27/22 13:49 AMB [id number]) Current Condition History of Current Condition Onset Date June 21 Current Complaints Leaking after prostate removal History of Current Condition Pt had surgery for prostate cancer in June. Had a catheter for a week or two and then started leaking. He reports he doesn't really leak when sitting, but at all other times leaks, he feels fairly constanty. Especially bad with sit to stand. Can't really stop the flow once it starts. Uses guards in addition to diaper. Uses about 1 guard an hour. Wasn't leaking before surgery. Denies constipation. Personal Factors Other Personal Factors That May Effect old open abdominal surgery Therapy/Recovery PT-OP-C Subjective Start: 09/26/22 10:10 Freq: Status: Active Protocol: Document 11/01/22 13:06 AMB (Rec: 11/01/22 13:58 AMB [id number]) OP-PT Subjective Patient Comments Patient Comments Pt was sick last week so had to cancel. Feels like the shot in his hip was helping with his pain. PT-OP-I Pelvic Floor Start: 09/26/22 10:10 Freq: Status: Active Protocol: Document 09/27/22 13:00 AMB (Rec: 09/27/22 15:55 AMB [id number]) Pelvic Floor Assessment Urine Pelvic Floor Surgery Yes: prostate Leakage Size Large Leakage Cause Cough,Exercise,Lifting,Sneeze, Urge Other Leakage Causes near constant leakage, especially sit to stand Leaks Per Day 100+ Voiding Frequency 20+ Nocturia 4+ Pads Used In 24 Hours 1/hr Urine Pad Type Depends Bowel Bowel Surgery No Bowel Movement Frequency 1/day [place] Stool Chart Type 1-7 5 SEMG (uV) Baseline 3 10 Second Contraction 17 Recruitment Pattern Fair Relaxation Good Holding Fair Stability of Hold Good SEMG Stability of Rest Good PT-OP-Q Treatments Start: 09/26/22 10:10 Freq: Status: Active Protocol: Document 11/01/22 13:06 AMB (Rec: 11/01/22 13:58 AMB [id number]) Therapeutic Exercises Sitting Exercises 2 Sitting Exercise Name quick flicks/ long holds in sitting Reps/Minutes 10 min Comments focusing on breath Standing Exercises mini lunge Reps/Minutes 2x10 mini squat Reps/Minutes 2x10 standing medium holds Standing Exercise Name more independent today Reps/Minutes 10 sit to stand Standing Exercise Name long holds vc breath Comments challenging PT-OP-T Assessment and Plan Start: 09/26/22 10:10 Freq: Status: Active Protocol: Document 11/01/22 13:06 AMB (Rec: 11/01/22 13:58 AMB [id number]) Physical Therapy Assessment Goals Two Impairment Pelvic floor strength Short Term Goal (STG) Cuco will perform a pelvic floor contraction for 10 seconds in sitting without compensation with abdominals or breath holding. STG Duration 4 weeks Rn Homecare Goal (LTG) Cuco will move from sit to stand while maintaining a pelvic floor contraction to show improved strength. LTG Duration 8 weeks One Impairment Incontinence Short Term Goal (STG) Cuco will move from sit to stand without leaking. STG Duration 4 weeks Residential Goal (LTG) Cuco will roll over in bed without leaking. LTG Duration 10 weeks Assessment Summary Assessment Pt is improving in his ability to hold contraction with mini squat and lunge. challenged by dual task activities. Would benefit from continued PT, pt is seeing MD tomorrow for R sided groin pain. Physical Therapy Plan Frequency and Duration Frequency of Treatment 1x/Week Duration of treatment (weeks) 10 Plan of Care Start Date 09/27/22 Plan of Care End Date 12/06/22 Therapeutic Interventions Therapeutic Interventions Home Exercise Program,Manual Therapy,Neuromuscular Re- education,Self-Care/Home Management,Therapeutic Activities,Therapeutic Exercises Modalities Biofeedback,Electric Stimulation
--- NOTE | 2022-11-28 08:40 | PT.OPDS ---
Current Diagnoses Malignant neoplasm of prostate (11/01/22) Stress incontinence (female) (male) (11/01/22) Visit Care Team Role Provider Type Anthony Quan MD Primary Care Provider Physician Specialty: Internal Medicine Address: [address] [place] [address], [id number] Email: Deborah Villarreal MD Family Provider Physician Specialty: Urology Address: [address] [place] [address], [id number] Email: Gilberto Farooq MD Attending Provider Non-Staff Referring Provider Specialty: Medical Address: [address] [place] [address], [id number] Email: Visit Number Visit Number 5 Discharge Summary PT-OP-B Current Condition Start: 09/26/22 10:10 Freq: Status: Active Protocol: Document 09/27/22 13:01 AMB (Rec: 09/27/22 13:49 AMB [id number]) Current Condition History of Current Condition Onset Date June 21 Current Complaints Leaking after prostate removal History of Current Condition Pt had surgery for prostate cancer in June. Had a catheter for a week or two and then started leaking. He reports he doesn't really leak when sitting, but at all other times leaks, he feels fairly constanty. Especially bad with sit to stand. Can't really stop the flow once it starts. Uses guards in addition to diaper. Uses about 1 guard an hour. Wasn't leaking before surgery. Denies constipation. Personal Factors Other Personal Factors That May Effect old open abdominal surgery Therapy/Recovery PT-OP-C Subjective Start: 09/26/22 10:10 Freq: Status: Active Protocol: Document 11/01/22 13:06 AMB (Rec: 11/01/22 13:58 AMB [id number]) OP-PT Subjective Patient Comments Patient Comments Pt was sick last week so had to cancel. Feels like the shot in his hip was helping with his pain. PT-OP-I Pelvic Floor Start: 09/26/22 10:10 Freq: Status: Active Protocol: Document 09/27/22 13:00 AMB (Rec: 09/27/22 15:55 AMB [id number]) Pelvic Floor Assessment Urine Pelvic Floor Surgery Yes: prostate Leakage Size Large Leakage Cause Cough,Exercise,Lifting,Sneeze, Urge Other Leakage Causes near constant leakage, especially sit to stand Leaks Per Day 100+ Voiding Frequency 20+ Nocturia 4+ Pads Used In 24 Hours 1/hr Urine Pad Type Depends Bowel Bowel Surgery No Bowel Movement Frequency 1/day Reagan Stool Chart Type 1-7 5 SEMG (uV) Baseline 3 10 Second Contraction 17 Recruitment Pattern Fair Relaxation Good Holding Fair Stability of Hold Good SEMG Stability of Rest Good PT-OP-T Assessment and Plan Start: 09/26/22 10:10 Freq: Status: Active Protocol: Document 11/28/22 08:39 AMB (Rec: 11/28/22 08:40 AMB [id number]) Physical Therapy Assessment Goals Two Impairment Pelvic floor strength Short Term Goal (STG) Cuco will perform a pelvic floor contraction for 10 seconds in sitting without compensation with abdominals or breath holding. STG Duration 4 weeks Residential Goal (LTG) Cuco will move from sit to stand while maintaining a pelvic floor contraction to show improved strength. LTG Duration 8 weeks One Impairment Incontinence Short Term Goal (STG) Cuco will move from sit to stand without leaking. STG Duration 4 weeks Draw Machine Operator Goal (LTG) Cuco will roll over in bed without leaking. LTG Duration 10 weeks Assessment Summary Assessment Cuco canceled his last PT visit via the phone. At the time of his last visit, he was noticing small amounts of progress, but continued to have a high level of urinary incontinence. He has been instructed in an appropriate HEP and asked to discuss a clamp with his urologist if he is interested. He would be welcome to return to PT in the future if needed with a new referral. Physical Therapy Plan Discharge Physical Therapy Discharge Reasons No Longer Attending PT
== END 2022-11-29 09:13 | disposition home or self-care (01) ==
LOC: PHYS 13:00
PROVIDERS: Family Provider Specialist; PCP Internal Medicine; Referring Provider Urology; Visit Provider Urology
DX: C61 Malignant neoplasm of prostate (principal); N39.3 Stress incontinence (female) (male)
CPT/HCPCS: 97110; 97161

== ENCOUNTER → 2022-11-04 09:20 | Outpatient (CLI) | payer MEDICARE, OTHER, SELFPAY ==
--- NOTE | 2022-11-04 09:22 | DI.CT.S_ITS ---
PROCEDURE: CT PELVIS W CON INDICATIONS: Right lower quadrant pain TECHNIQUE: After the administration of oral contrast and intravenous contrast, 5 mm thick sections acquired from the iliac crests to the symphysis. 5 mm thick coronal and sagittal reformats were acquired. For radiation dose reduction, the following was used: automated exposure control, adjustment of mA and/or kV according to patient size. COMPARISON: None. FINDINGS: Image quality: Excellent. Genitourinary: The urinary bladder is partially filled. Given this, the wall thickness is normal. Distal ureters are nondistended. No ureteral or bladder calcifications. The prostate gland is surgically absent. No abnormalities in the prostate bed. Peritoneum and bowel: The sigmoid colon is redundant and there is moderate diverticulosis through the proximal sigmoid. Mild wall thickening of sigmoid colon wall in the left anterior lower quadrant. Questionable adjacent vascular congestion. Pelvic small bowel loops are normal caliber, containing fluid and contrast. No free intraperitoneal fluid or air. Nodes and vessels: No iliac, pelvic, or inguinal adenopathy. There are several surgical clips in the left inguinal region of prior hernia repair. Iliac vessels demonstrate normal size and enhancement. Bones: No suspicious bony lesions. Degenerative changes in the hip joints, sacroiliac joints, and at the L5-S1 disc level. Miscellaneous: No inguinal hernias. Partially imaged 8.5 cm cystic mass likely arising from the lower pole of the right kidney. IMPRESSION: 1. Surgical change of prostatectomy without evidence of abnormality in the prostate bed. 2. There is circumferential wall thickening and slight vascular congestion in the proximal sigmoid colon raising the possibility of mild, or resolving acute diverticulitis. 3. Prior left inguinal hernia repair. Dictated by: Joi Verde M.D. on 11/04/2022 at 12:32 Approved by: Joi Verde M.D. on 11/04/2022 at 12:42
== END ==
PROVIDERS: Family Provider Specialist; PCP Internal Medicine; Referring Provider Urology; Visit Provider Urology
DX: N28.89 Other specified disorders of kidney and ureter (principal); K57.30 Diverticulosis of large intestine without perforation or abscess without bleeding; R10.31 Right lower quadrant pain
CPT/HCPCS: 72193; Q9967

== ENCOUNTER → 2023-02-04 13:39 | Outpatient (CLI) | payer MEDICARE, OTHER, SELFPAY ==
--- NOTE | 2023-02-04 13:43 | DI.MRI.S_ITS ---
PROCEDURE: MR HIP LT WO CON INDICATIONS: Unilateral primary osteoarthritis, left hip TECHNIQUE: Noncontrast coronal T1 spin echo and STIR through the bony pelvis. Coronal and axial T2 fast spin echo with fat saturation, sagittal T1 spin echo, and oblique axial T2 fast spin echo with fat saturation through the hip. COMPARISON: [facility] [place], CR, XR PELVIS WITH LATERAL HIP LEFT, 10/19/2022, 16:37. [facility], CT, CT PELVIS W CON, 11/04/2022, 11:15. [facility], RF, HIP INJECTION, 12/30/2022, 10:39. FINDINGS: Image quality: Excellent. Bones and joints: Bone marrow of the pelvic ring and proximal femurs show normal signal throughout. No intraosseous lesions or fractures. No avascular necrosis of the femoral heads. Disc desiccation and facet hypertrophy are seen in the included lumbar spine. Mild subchondral cystic changes and subchondral edema is seen in the bilateral acetabula. Mild degenerative changes at the pubic symphysis. There is a probable 16 mm synovial cyst along lung the posterior pubic symphysis versus left possibly a bladder diverticulum or urachal remnant. Tendons and ligaments: There is mild distal gluteus medius and minimus tendinosis without a discrete tear visualized. The proximal iliotibial band appears intact. The iliopsoas tendon appears intact, without adjacent bursal fluid collections. The origin of the hamstring tendon is intact at the ischial tuberosity. The direct and indirect heads of the rectus femoris muscle origin appear intact. Labrum and cartilage: There is full-thickness cartilage loss at the lateral aspect of the superior to anterosuperior left hip with subchondral cystic changes and subchondral edema within the acetabulum and marginal osteophytes on both sides of the joint. Diffuse cartilage irregularity is seen throughout the remainder of the hip. There is a small left hip effusion. Diffuse labral degeneration is seen with mild chronic degenerative tearing. Soft tissues: There is focal fatty infiltration or an intramuscular lipoma within the left rectus femoris muscle. Visualized muscles demonstrate normal bulk and internal signal. Quadratus femoris muscle demonstrates no internal edema to suggest ischiofemoral impingement. The proximal sciatic neurovascular bundle appears intact. Metal susceptibility artifact is seen in the left inguinal region, most likely from prior inguinal hernia repair. Status post prostatectomy. Multiple diverticula are seen in the colon without acute inflammatory changes. IMPRESSION: 1. Left hip osteoarthrosis including full-thickness cartilage loss at the superior to anterosuperior hip with subchondral cystic changes, subchondral edema, and marginal osteophytes. There is a small left hip effusion. 2. Degenerative changes are seen in the right hip on full [id number] coronal images including subchondral cystic changes and edema. 3. Mild left gluteus medius and minimus tendinosis. 4. Degenerative changes are also seen at the pubic symphysis and lumbar spine. 5. A 16 mm cyst posterior to the pubic symphysis is most likely a ganglion cyst, but a small bladder diverticulum or urachal remnant cyst is not excluded. Approved by: Donald Cerda M.D. on 02/06/2023 at 8:55
== END ==
PROVIDERS: Family Provider Specialist; PCP Internal Medicine; Referring Provider Orthopaedic Surgery; Visit Provider Orthopaedic Surgery
DX: M16.12 Unilateral primary osteoarthritis, left hip (principal); M25.452 Effusion, left hip
CPT/HCPCS: 73721

== ENCOUNTER → 2023-02-07 10:08 | Outpatient (CLI) | payer MEDICARE, OTHER, SELFPAY ==
[2023-02-09 07:47] LABS: PSA, Total < 0.1 ng/mL (0.0-4.0)
== END ==
PROVIDERS: Family Provider Specialist; PCP Internal Medicine; Referring Provider Urology; Visit Provider Urology
DX: C61 Malignant neoplasm of prostate (principal); R97.20 Elevated prostate specific antigen [PSA]
CPT/HCPCS: 84153; 84154

== ENCOUNTER → 2023-02-28 09:58 | Outpatient (CLI) | payer MEDICARE, OTHER, SELFPAY ==
--- NOTE | 2023-02-28 09:59 | DI.US.S_ITS ---
PROCEDURE: US ABDOMEN LIMITED INDICATIONS: Essential thrombocytosis TECHNIQUE: Real-time scanning was performed of the abdominal and retroperitoneal organs, with image documentation. COMPARISON: [facility], , US ABDOMEN LIMITED, 06/13/2018, 10:41. FINDINGS: Liver: The liver measures 19.4 cm in length and demonstrates increased echogenicity. The main portal vein is patent. Gallbladder: The gallbladder wall measures 1.4 mm in diameter. No stones, sludge, pericholecystic fluid, or sonographic Melara sign. Biliary ducts: Intrahepatic bile ducts are non-dilated. The common hepatic duct measures 7.6 mm in diameter. The common bile duct is not visualized. Normal is 6-7 mm or less in diameter, or 10 mm or less post-cholecystectomy. Pancreas: Visualized portions of the pancreas are sonographically normal. The tail the pancreas is not visualized. IMPRESSION: 1. Increased hepatic echogenicity noted likely related to fatty infiltration of the liver but other sources of hepatocellular disease cannot be excluded. 2. Patent main portal vein with appropriate flow direction. 3. No cholelithiasis or findings to suggest choledocholithiasis or acute cholecystitis. Dictated by: Zahra Dodd M.D. on 02/28/2023 at 11:15 Approved by: Zahra Dodd M.D. on 02/28/2023 at 11:17
== END ==
PROVIDERS: Family Provider Specialist; PCP Physician Assistant; Referring Provider Internal Medicine Hematology & Oncology; Visit Provider Internal Medicine Hematology & Oncology
DX: D47.3 Essential (hemorrhagic) thrombocythemia (principal)
CPT/HCPCS: 76705

== ENCOUNTER → 2023-12-22 17:23 | Outpatient (CLI) | payer MEDICARE, OTHER, SELFPAY ==
--- NOTE | 2023-12-22 17:24 | DI.MRI.S_ITS ---
PROCEDURE: MR FOOT LT WO/W CON INDICATIONS: Non-pressure chronic ulcer of other part of left f TECHNIQUE: Multiphasic, multisequence MRI of the forefoot was performed, before and after intravenous contrast administration. COMPARISON: [facility], CR, XR TOE(S) LEFT, 08/07/2023, 16:22. FINDINGS: Image quality: Excellent. Bones and joints: Osseous edema and enhancement are seen within the 3rd distal phalanx adjacent to the skin ulceration with mildly decreased intrinsic T1-weighted signal and indistinct appearance of the distal cortex, suspicious for osteomyelitis. Osseous structures are otherwise normal in signal intensity. Mild moderate degenerative changes at the 1st metatarsophalangeal joint. Scattered degenerative changes are seen at the interphalangeal joints of toes. Soft tissues: Skin ulceration is seen at the distal tip of the 3rd toe with surrounding soft tissue edema. No focal fluid collection is seen. The intrinsic foot musculature is normal in bulk. Nonspecific soft tissue edema is seen in the dorsum of the foot. No enhancing soft tissue mass. Visualized flexor and extensor tendons appear intact, without tenosynovitis. The distal insertions of the peroneus brevis and longus tendons appear intact. The principal Lisfranc ligament appears intact. Sagittal images demonstrate no evidence for plantar plate tears. IMPRESSION: 1. Skin ulceration at the distal tip of the 3rd toe with surrounding soft tissue edema. No focal fluid collection. 2. Osseous edema and enhancement in the 3rd distal phalanx adjacent to the skin ulcer is suspicious for osteomyelitis. Approved by: Donald Cerda M.D. on 12/25/2023 at 9:37
== END ==
PROVIDERS: Family Provider Specialist; PCP Physician Assistant; Referring Provider Podiatrist Foot & Ankle Surgery; Visit Provider Podiatrist Foot & Ankle Surgery
DX: L97.522 Non-pressure chronic ulcer of other part of left foot with fat layer exposed (principal); M86.172 Other acute osteomyelitis, left ankle and foot
CPT/HCPCS: 73720; A9579

== ENCOUNTER 2024-01-15 10:02 | Day surgery (SDC) | payer MEDICARE, OTHER, SELFPAY ==
[2024-01-15] VITALS (7 sets, daily range): BP systolic 138–161; BP diastolic 83–90; PULSE 78–85; RESP 13–31; TEMP 36.2–36.8; O2SAT 88–96; BMI 33.2
--- NOTE | 2024-01-15 | PATH_ITS ---
[facility] Accession Number: [id number] No. of containers..02 Tissue . 01 Material submitted: . PART A: toe - LEFT THIRD TOE PART B: toe - LEFT THIRD TOE . 01 Clinical history: . LEFT THIRD TOE PARTIAL AMPUTATION. OTHER CHRONIC OSTEOMYELITIS, LEFT ANKLE AND FOOT. NONPRESSURE CHRONIC ULCER OF OTHER PART OF LEFT FOOT. A: BEFORE IRRIGATION B: AFTER IRRIGATION . 01 Diagnosis: A. LEFT THIRD TOE: Fragments of skin and subcutaneous adipose tissue with actively inflamed chronic ulcer and associated epidermal acanthosis and dermal fibrosis. . B. LEFT THIRD TOE: Fragment of articular bone with reactive changes. Final diagnosis pending decalcification of specimen (see comment). [facility] 01/18/2024 1404 Local . 01 Comment: Decalcification of specimen B is pending, which will allow for better evaluation for the presence/abscence of ostomyelitis. Those results and the final diagnosis will be reported in an addendum. . 01 Electronically signed: . Danitza Gibbs MD, Pathologist NPI- [id number] . 01 Gross description: . A. Received in formalin, labeled with the patient's name, , and left third toe before irrigation, consists of two fragments of fernandez-brown soft tissue aggregating to 1.5 x 1.1 x 0.6 cm. An overlying portion of fernandez unremarkable skin is noted measuring 1.5 x 1.2 cm. The tissue fragments are inked blue. A toenail is not identified. Bone is not identified. The larger fragment is serially sectioned into five slices, and the entire specimen is submitted in cassette A1. B. Received in formalin, labeled with the patient's name, , and after irrigation, consists of a single fragment of fernandez-brown roughened soft tissue measuring 0.5 x 0.3 x 0.2 cm. The possible margin is inked blue. The tissue is entirely submitted in cassette B1. ([id number]) /MRV 01/17/2024 1311 Local . 01 Pathologist provided ICD-10: M86.672, L97.524 . 01 CPT . 148482, 885401 Specimen Comment: A courtesy copy of this report has been sent to [facility] Performed at: 01 [facility] [address] [place] [address], [place], [place] [id number] MD Torsten Prescott MD Phone: [phone]
--- NOTE | 2024-01-15 | DI.RAD.S_ITS ---
PROCEDURE: XR FOOT LT MIN 3V INDICATIONS: post-op TECHNIQUE: 3 views of the foot were acquired. COMPARISON: [facility], MR, MR FOOT LT WO/W CON, 12/22/2023, 19:01. [facility], CR, XR TOE(S) LEFT, 08/07/2023, 16:22. FINDINGS: Bones: No acute fractures or dislocations. Postsurgical changes of interval amputation of the left 3rd toe at the level of the distal phalanx. No new suspicious bony lesions. Soft tissues: No tibiotalar joint effusion. Achilles tendon appears normal. IMPRESSION: Status post interval amputation of the left 3rd toe distal phalanx. Dictated by: Kevin Tellez M.D. on 01/15/2024 at 18:18 Approved by: Kevin Tellez M.D. on 01/15/2024 at 18:20
--- NOTE | 2024-01-15 08:00 | P.HP_ITS ---
History of Present Illness History of Present Illness Chief complaint: Left third toe partial amputation Narrative: 73 year old male with a long-term history and active use of hydroxyurea for essential thrombocythemia, prostate cancer, and recently discovered skin cancer on the forehead was followed for chronic ulcer to the left third toe. The ulcer was gradually improving but regressed recently with exposed bone. MRI was obtained showing suspicious edema with concern for osteomyelitis, and the wound appearance and treatment course are atypical. Surgery was recommended, which patient is amenable to. Patient denies n/v/f/c/sob/cp. [facility] Medical History (Updated 01/11/24 @ 12:55 by Yahaira Umaña RN) History of Mohs micrographic surgery for skin cancer Hypothyroidism Essential thrombocytosis (~2000) HLD (hyperlipidemia) BPH w urinary obs/LUTS Elevated PSA GERD (gastroesophageal reflux disease) Surgical History (Updated 01/11/24 @ 12:55 by Yahaira Umaña RN) Hx of prostatectomy Hx of left inguinal hernia repair Vasectomy status H/O hernia repair Social History household members: spouse Smoking Status: Former smoker alcohol intake: former Meds Home Medications and Allergies Home Medications Medication Instructions Recorded Confirmed Type vitamin B complex (B 1 tab PO QDAY ##0 03/27/17 02/13/23 History Complex-Vitamin B12 tablet) acetaminophen 500 mg tablet 500 mg PO Q4HP PRN Pain (Scale 06/21/17 02/13/23 History (Tylenol Extra Strength) Score 1-3) ##0 psyllium husk (aspartame) 3.4 gram 1 pac PO QAM ##0 06/21/17 03/16/23 History oral powder packet (Metamucil Fiber Singles) vit C 50 mg-E 15 unit-zinc cit 4.5 1 tab DAILY 04/30/19 03/16/23 History mg-lutein 2.5 mg-zeaxan chew tablet (Gezlong) rosuvastatin 20 mg tablet (Crestor) 10 mg PO DAILY 07/30/19 03/16/23 History levothyroxine 75 mcg tablet 75 mcg PO DAILY 10/29/19 03/16/23 History gabapentin 300 mg capsule 300 mg PO TID 08/24/20 02/13/23 History tamsulosin 0.4 mg capsule 0.4 mg PO DAILY #90 caps 09/09/20 03/16/23 Rx cholecalciferol (vitamin D3) 50 50 mcg PO DAILY 01/05/21 02/13/23 History mcg (2,000 unit) capsule (Vitamin D3) zinc 50 mg capsule 50 mg PO DAILY 01/05/21 02/13/23 History hydroxyurea 500 mg capsule 1,000 mg (2 x 500 mg) PO DAILY 10/13/21 03/16/23 Rx #225 caps magnesium 500 mg tablet 500 mg PO DAILY 10/27/21 03/16/23 History valacyclovir 1 gram tablet 1,000 mg DAILY 03/16/23 03/16/23 History bicalutamide 50 mg tablet (Casodex) 50 mg PO DAILY prostate cancer #30 03/17/23 Rx tabs Allergies Allergy/AdvReac Type Severity Reaction Status Date / Time lidocaine [LIDOCAINE] Allergy Severe all the Verified 05/13/21 11:37 'mari' make my throat swell up Review of Systems Review of Systems Narrative: Negative except as mentioned in HPI. Assessment & Plan Assessment & Plan narrative: 1. Chronic naturopathic ulcer, left third toe. 2. Chronic osteomyelitis, left third toe. Patient seen and evaluated. Surgical plan: left third toe partial amputation for biopsy and all procedures as necessary. Risks and benefits of the procedure discussed with all questions answered to patient's satisfaction. Reviewed potential complications that may include but not limited to the following: DVT, failure to resolve all symptoms, infection, nerve injury, bleeding, recurrence, or wound. Reviewed surgical technique and general aftercare protocols. All questions answered to patient's satisfaction with no guarantees made. Patient verbalized understanding and agreed with surgical plan. RTC for post-op.
--- NOTE | 2024-01-15 08:13 | PM.PREOP ---
Pre-operative Note Interval Note History & Physical reviewed/Exam performed by Physician: Yes Changes to H&P: No
[2024-01-15 10:42] LABS: Hematocrit 40.9 % (41-53); Hemoglobin 13.9 g/dL (13.5-17.5); Mean Corpuscular Hemoglobin 38.9 PG (26-34); Mean Corpuscular Volume 114.2 fL (80-100); Platelet Count 400 X10^3/uL (150-400); Red Blood Cell Count 3.58 X10^6/uL (4.5-5.9); Red Cell Distribution Width 12.1 % (11.6-14.8); White Blood Cell Count 9.5 X10^3/uL (4.5-11.0)
[2024-01-15] MEDS: LACTATED RINGERS 1,000 ML 42 ML IV (10:54)
[2024-01-15] MEDS: CEFAZOLIN 2 GM/100 ML PREMIX 100 ML IV (12:10)
--- NOTE | 2024-01-15 12:33 | SUR.OPER ---
Supine on padded OR bed, head on pillow, arms secured on padded arm boards at <90 degrees abduction, legs uncrossed, safety belt at thigh, tape over blanket over lower legs.
--- NOTE | 2024-01-15 12:37 | SUR.OPER ---
ABRASION SCALP HEALING LEFT MID TOE REDDENED
[2024-01-15] MEDS: LIDOCAINE 1% 20 ML INJ (12:56)
[2024-01-15] MEDS: SODIUM CHLORIDE IRRIG SOLUTION 3,000 ML, GENTAMICIN 240 MG IRR (12:57)
[2024-01-15] MEDS: VANCOMYCIN 1,000 MG VIAL 1000 MG TOP (12:58)
--- NOTE | 2024-01-16 06:55 | PM.OP.1 ---
Operative Date/Time/Diagnoses Date of procedure: 01/15/24 Pre-op diagnosis: 1. Left third toe chronic ulcer 2. Left third toe osteomyelitis Post-op diagnosis: same Procedure & Clinicians Procedure: 1. Left third toe partial amputation Same procedure as scheduled: Yes Indications: Left third toe chronic ulcer with MRI concerning for osteomyelitis and importance to rule out malignancy due to history of presence and history of cancer. Surgeon: Genaro Concepcion Click Yes if Unassisted: Yes Anesthesia Type: Sedation Operative Notes Findings: Non-viable bone and soft tissue to distal phalanx of left third toe. Closure Type: primary Estimated Blood Loss (mL): 20 Procedure in detail: The patient was identified and brought into the operating room via gurney, and was transferred to the operating room table. The patient was in the supine position. No tourniquet was applied. The left foot was then prepped and draped in the usual sterile fashion. A time-out was performed as per operating room protocol with the surgical team in agreement. Attention was directed to the left forefoot. 6 cc 1% lidocaine plain was administered to left third ray for local block. Attention was then directed to the left third toe. A #15 blade was used to make a fishmouth incision to removed the distal aspect of the digit. The toe was disarticulated at the distal interphalangeal joint, which was sent to pathology and microbiology. The removed portion of bone appeared necrotic and devitalized with erosion to distal phalanx . The head of the middle phalanx appeared to have adequate bone stock. Surgical site was irrigated using 3L of saline mixed with 240 mg of gentamicin under pressurized bag. Outer gloves were replaced with new sterile gloves, and previously used instruments were set aside. A new sagittal blade was used to excise a sliver of middle phalanx, which was sent to pathology and microbiology as proximal margin. Surgical site was then close using a 3-0 vicryl and 4-0 nylon. The left foot were cleaned and dried. Xeroform was used to incision site, followed by gauze, abdominal pad, conforming bandage, and elastic bandage wrap. Patient tolerated procedure without complication. Post-op X-ray ordered. Patient was transferred to PACU with all vitals stable. Complications: none Post-operative Condition: stable Disposition: same day surgery Plan for aftercare: Keep dressing clean, dry, and intact. Limited heel weight bearing, with assistive device in surgical shoe. Follow-up as scheduled.
== END 2024-01-15 14:30 | disposition home or self-care (01) ==
PROVIDERS: Family Provider Specialist; PCP Physician Assistant; Referring Provider Podiatrist Foot & Ankle Surgery; Visit Provider Podiatrist Foot & Ankle Surgery
PROC: (CPT 28825; principal; 2024-01-15 11:15)
DX: L97.524 Non-pressure chronic ulcer of other part of left foot with necrosis of bone (principal); M86.672 Other chronic osteomyelitis, left ankle and foot
CPT/HCPCS: 28825; 36415; 73630; 85027; 87070; 87075; 87186; 87205; J0330; J0690; J1100; J2405; J2704; J3010